=== PATIENT | male | born 1975 | race Caucasian/White ===

== ENCOUNTER 2021-05-06 05:40 | Inpatient (IN) | payer OTHER ==
[~2021-05-06] VITALS: Ht 200.7 cm; Wt 125.0 kg
[~2021-05-06 05:40] MED LIST: ALPR0.25 PO; ASPI325T8 PO; CALC500T31 PO; IXAZ4CAP PO; LENA15CA PO; LEVE500T56 PO; OMEG100021 PO; ONDA4TAB7 PO; VALA10008 PO
[2021-05-06 07:01] LABS: BASO % 1 % (0-3); EOS % 1 % (0-3); HEMATOCRIT 36.5 % (39.0-53.0); HEMOGLOBIN 12.5 g/dL (13.0-17.5); LYMPH % 18 % (24-48); MEAN CORPUSCULAR HEMOGLOBIN 36 pg (25-35); MEAN CORPUSCULAR HGB CONC 34 g/dL (31-37); MEAN CORPUSCULAR VOLUME 105 fL (79-100); MONO # 0.4 x10^3/uL (0.0-1.1); MONO % 7 % (0-9); NEUT # 4.3 x10^3/uL (1.8-7.7); NEUT % 74 % (31-73); PLATELET COUNT 108 x10^3/uL (140-400); RED BLOOD COUNT 3.47 x10^6/uL (4.30-5.70); RED CELL DISTRIBUTION WIDTH 15.4 % (11.5-14.5); WHITE BLOOD COUNT 5.8 x10^3/uL (4.0-11.0)
[2021-05-06 08:11] LABS: BARBITURATES NEG (NEG); BENZODIAZEPINES NEG (NEG); CANNABINOIDS NEG (NEG); COCAINE NEG (NEG); METHADONE NEG (NEG); OPIATES NEG (NEG); PHENCYCLIDINE NEG (NEG)
[2021-05-06 08:15] LABS: BILIRUBIN,URINE NEGATIVE (NEG); CLARITY,URINE CLOUDY; COLOR,URINE YELLOW; NITRITE,URINE NEGATIVE (NEG); PROTEIN,URINE 100 mg/dL (NEG-TRACE); UROBILINOGEN,URINE 0.2 mg/dL (0.2 mg/dL)
[2021-05-06 08:16] LABS: CREATININE 2.5 mg/dL (0.7-1.3); GFR 28.2; POTASSIUM 3.8 mmol/L (3.5-5.1)
[2021-05-06 08:18] LABS: AMPHETAMINE/METHAMPHETAMINE NEG (NEG)
[2021-05-06 08:21] LABS: GRANULAR CASTS,URINE OCCASIONAL /HPF; HYALINE CASTS, URINE FEW /HPF
[2021-05-06 08:22] LABS: BACTERIA,URINE FEW /HPF (0-FEW)
[2021-05-06 08:23] LABS: ALBUMIN 3.4 g/dL (3.4-5.0); ALBUMIN/GLOBULIN RATIO 0.8 (1.0-1.7); MAGNESIUM 2.9 mg/dL (1.8-2.4); PHOSPHORUS 2.7 mg/dL (2.6-4.7); TOTAL BILIRUBIN 0.4 mg/dL (0.2-1.0); TOTAL PROTEIN 7.9 g/dL (6.4-8.2)
[2021-05-06 08:23] LABS: WBC,URINE OCC /HPF (0-4)
[2021-05-06 08:24] LABS: AMORPHOUS SEDIMENT,UR PRESENT /HPF
[2021-05-06] MEDS ORDERED: levETIRAcetam 1,000 MG in IV DEXTROSE 5% 100ML 100 ML IV ONE (08:30)
--- NOTE | 2021-05-06 09:18 | RAD ---
EXAMINATION: CT HEAD/BRAIN WO CLINICAL HISTORY: Seizure, h/o left ventricular mass TECHNIQUE: Serial axial images without IV contrast were obtained from the vertex to the foramen magnu m. CT Dose Reduction Employed: One or more of the following individualized dose reduction techniques wer e utilized for this examination: 1. Automated exposure control 2. Adjustment of the mA and/or kV ac cording to patient size 3. Use of iterative reconstruction technique. COMPARISON: MRI brain 12/09/2020, CT head 12/06/2020 FINDINGS: Acute Change: No evidence of an acute infarct or other acute parenchymal process. Hemorrhage: No evidence of acute intracranial hemorrhage. Mass Lesion/Mass Effect: Prominent asymmetry in the region of the left thalamus and basal ganglia at site of overlying small subependymal nodule which is best visualized on comparison MRI. The degree of asymmetry is similar to slightly more pronounced compared to prior study which may be in part relate d to patient positioning and imaging technique. No new or significant midline shift. Parenchyma: No significant volume loss. Parenchyma otherwise within normal limits for age. Ventricles: Poorly visualized small subependymal nodule in the region of the left caudothalamic groov e, better appreciated on comparison MRI. Asymmetric prominence of the right lateral ventricle, nonspe cific but similar to prior study. Paranasal Sinuses and Skull Base: Increased multifocal sinusitis with changes of chronic left sphenoi d sinusitis. Visualized skull base and soft tissues unremarkable. IMPRESSION: No evidence of acute intracranial abnormality. Similar asymmetry in the region of the left thalamus and basal ganglia with overlying small subependy mal nodule as described. If MRI brain with intravenous contrast has not been obtained since the dev rison MRI, this is again recommended for further evaluation and could be obtained on a nonemergent/ou tpatient basis. Increased multifocal sinusitis as described. Electronically signed by: Jose Raymond DO (05/06/2021 9:16 AM) [id number]
--- NOTE | 2021-05-06 09:46 | ED.ADGEN ---
Past Medical History Past Medical History: Other Additional Past Medical Histor: MULTIPLE MYELOMA Past Surgical History: No Surgical History Smoking Status: Never Smoker Alcohol Use: None General Adult EDM: Chief Complaint: SEIZURE HPI: HPI: Patient is a 45 year old male brought in for seizure by EMS. Patient's states that she thought she heard some commotion last night around 11 but was in a different room. Is unsure what time the seizure happened and was not witnessed. This morning when went to get him up for his work she noticed he was confused. He also had bit the left side of his tongue. No bowel or bladder incontinence. Patient has a history of a seizure earlier this year and was started on Keppra. At that time he was seen and had an MRI without contrast that showed a mass in his left ventricle. He discontinued taking the Keppra several months ago because he did not like the way it made him felt. Patient had a history of epilepsy in childhood. Also has a history significant for multiple myeloma several years in remission after treatment. states that the treatment of multiple myeloma caused some renal injury but has never needed dialysis. Patient states that he felt well in his normal state of health yesterday and has been getting good sleep. No new medications or stressors. Review of Systems: Review of Systems: All other systems within normal limits except for as noted in the HPI Current Medications: Current Medications Medications (Trade) Dose Ordered Sig/Suzie Start Time Stop Time Status Last Admin Dose Admin Levetiracetam 1000 mg/Dextrose 110 ml @ 440 mls/hr 1X ONCE 05/06/21 08:30 05/06/21 08:44 DC 05/06/21 08:41 440 MLS/HR Allergies: Allergies: Allergies Coded Allergies Type Severity Reaction Last Updated Verified No Known Drug Allergies 12/06/20 No Physical Exam: PE: Constitutional: Well developed, well nourished, no acute distress, non-toxic appearance. [] HENT: Normocephalic, atraumatic, bilateral external ears normal, nose normal. Small laceration to left tongue, hemostatic [] Eyes: PERRLA, conjunctiva normal, no discharge. [] Neck: No rigidity, supple, no stridor. [] Cardiovascular: Regular rate and rhythm, brisk cap refill [] Lungs & Thorax: Non labored symmetric respirations, no tachypnea or respiratory distress [] Abdomen: Soft, nondistended. Skin: Warm, dry, no erythema, no rash. [] Back: Unremarkable Extremities: No deformities, range of motion grossly intact, no lower extremity edema [] Neurologic: Alert and oriented X 3, no focal deficits noted. [] Psychologic: Affect normal, judgement normal, mood normal. [] Current Patient Data: Labs: Laboratory Tests Test 05/06/21 06:51 05/06/21 07:30 05/06/21 07:40 White Blood Count 5.8 x10^3/uL (4.0-11.0) Red Blood Count 3.47 x10^6/uL (4.30-5.70) L Hemoglobin 12.5 g/dL (13.0-17.5) L Hematocrit 36.5 % (39.0-53.0) L Mean Corpuscular Volume 105 fL (79-100) H Mean Corpuscular Hemoglobin 36 pg (25-35) H Mean Corpuscular Hemoglobin Concent 34 g/dL (31-37) Red Cell Distribution Width 15.4 % (11.5-14.5) H Platelet Count 108 x10^3/uL (140-400) L Neutrophils (%) (Auto) 74 % (31-73) H Lymphocytes (%) (Auto) 18 % (24-48) L Monocytes (%) (Auto) 7 % (0-9) Eosinophils (%) (Auto) 1 % (0-3) Basophils (%) (Auto) 1 % (0-3) Neutrophils # (Auto) 4.3 x10^3/uL (1.8-7.7) Lymphocytes # (Auto) 1.0 x10^3/uL (1.0-4.8) Monocytes # (Auto) 0.4 x10^3/uL (0.0-1.1) Eosinophils # (Auto) 0.0 x10^3/uL (0.0-0.7) Basophils # (Auto) 0.0 x10^3/uL (0.0-0.2) Segmented Neutrophils % 58 % (35-66) Band Neutrophils % 14 % (0-9) H Lymphocytes % 15 % (24-48) L Atypical Lymphocytes % (Manual) 3 % (0-0) H Monocytes % 7 % (0-10) Eosinophils % 3 % (0-5) Platelet Estimate Decreased (ADEQUATE) Lactic Acid Level 1.0 mmol/L (0.4-2.0) Sodium Level 135 mmol/L (136-145) L Potassium Level 3.8 mmol/L (3.5-5.1) Chloride Level 101 mmol/L (98-107) Carbon Dioxide Level 25 mmol/L (21-32) Anion Gap 9 (6-14) Blood Urea Nitrogen 27 mg/dL (8-26) H Creatinine 2.5 mg/dL (0.7-1.3) H Estimated GFR (Cockcroft-Gault) 28.2 BUN/Creatinine Ratio 11 (6-20) Glucose Level 92 mg/dL (70-99) Calcium Level 8.0 mg/dL (8.5-10.1) L Phosphorus Level 2.7 mg/dL (2.6-4.7) Magnesium Level 2.9 mg/dL (1.8-2.4) H Total Bilirubin 0.4 mg/dL (0.2-1.0) Aspartate Amino Transferase (AST) 10 U/L (15-37) L Alanine Aminotransferase (ALT) 31 U/L (16-63) Alkaline Phosphatase 63 U/L (46-116) Creatine Kinase 378 U/L (39-308) H Myoglobin 2429 ng/mL (16-96) H Troponin I Quantitative < 0.017 ng/mL (0.000-0.055) Total Protein 7.9 g/dL (6.4-8.2) Albumin 3.4 g/dL (3.4-5.0) Albumin/Globulin Ratio 0.8 (1.0-1.7) L Ethyl Alcohol Level < 10 mg/dL (0-10) Urine Collection Type Unknown Urine Color Yellow Urine Clarity Cloudy Urine pH 5.0 (<5.0-8.0) Urine Specific [place] 1.020 (1.000-1.030) Urine Protein 100 mg/dL (NEG-TRACE) Urine Glucose (UA) Negative mg/dL (NEG) Urine Ketones (Stick) Negative mg/dL (NEG) Urine Blood Trace (NEG) Urine Nitrite Negative (NEG) Urine Bilirubin Negative (NEG) Urine Urobilinogen Dipstick 0.2 mg/dL (0.2 mg/dL) Urine Leukocyte Esterase Negative (NEG) Urine RBC 1-2 /HPF (0-2) Urine WBC Occ /HPF (0-4) Urine Squamous Epithelial Cells Occ /LPF Urine Amorphous Sediment Present /HPF Urine Bacteria Few /HPF (0-FEW) Urine Hyaline Casts Few /HPF Urine Granular Casts Occasional /HPF Urine Mucus Mod /LPF Urine Opiates Screen Neg (NEG) Urine Methadone Screen Neg (NEG) Urine Barbiturates Neg (NEG) Urine Phencyclidine Screen Neg (NEG) Urine Amphetamine/Methamphetamine Neg (NEG) Urine Benzodiazepines Screen Neg (NEG) Urine Cocaine Screen Neg (NEG) Urine Cannabinoids Screen Neg (NEG) Urine Ethyl Alcohol Neg (NEG) Laboratory Tests 05/06/21 06:51 Laboratory Tests 05/06/21 07:30 Vital Signs: Vital Signs Date Time Temp Pulse Resp B/P (MAP) Pulse Ox O2 Delivery O2 Flow Rate FiO2 05/06/21 07:20 97.8 68 16 143/87 (105) 95 Room Air 97.8 EKG: EKG: Sinus rhythm, heart rate 60s be admitted, diffuse Q waves, no ST elevation or depression, normal axis. [] Heart Score: C/O Chest Pain: No Risk Factors: Risk Factors: DM, Current or recent (<one month) smoker, HTN, HLP, family history of CAD, obesity. Risk Scores: Score 0 - 3: 2.5% MACE over next 6 weeks - Discharge Home Score 4 - 6: 20.3% MACE over next 6 weeks - Admit for Clinical Observation Score 7 - 10: 72.7% MACE over next 6 weeks - Early Invasive Strategies Radiology/Procedures: Radiology/Procedures: [facility] [address] [place], [place] [id number] IMAGING REPORT Signed PATIENT: GIANNA GARCIA ACCOUNT: [id number] : 1975 LOCATION: ER AGE: 45 SEX: M EXAM STATUS: REG ER ORD. PHYSICIAN: MILES CAMACHO MD REASON: seizure, h/o left ventricular mass PROCEDURE: CT HEAD WO CONTRAST EXAMINATION: CT HEAD/BRAIN WO CLINICAL HISTORY: Seizure, h/o left ventricular mass TECHNIQUE: Serial axial images without IV contrast were obtained from the vertex to the foramen magnum. CT Dose Reduction Employed: One or more of the following individualized dose reduction techniques were utilized for this examination: 1. Automated exposure control 2. Adjustment of the mA and/or kV according to patient size 3. Use of iterative reconstruction technique. COMPARISON: MRI brain 12/09/2020, CT head 12/06/2020 FINDINGS: Acute Change: No evidence of an acute infarct or other acute parenchymal process. Hemorrhage: No evidence of acute intracranial hemorrhage. Mass Lesion/Mass Effect: Prominent asymmetry in the region of the left thalamus and basal ganglia at site of overlying small subependymal nodule which is best visualized on comparison MRI. The degree of asymmetry is similar to slightly more pronounced compared to prior study which may be in part related to patient positioning and imaging technique. No new or significant midline shift. Parenchyma: No significant volume loss. Parenchyma otherwise within normal limits for age. Ventricles: Poorly visualized small subependymal nodule in the region of the left caudothalamic groove, better appreciated on comparison MRI. Asymmetric prominence of the right lateral ventricle, nonspecific but similar to prior study. Paranasal Sinuses and Skull Base: Increased multifocal sinusitis with changes of chronic left sphenoid sinusitis. Visualized skull base and soft tissues unremarkable. IMPRESSION: No evidence of acute intracranial abnormality. Similar asymmetry in the region of the left thalamus and basal ganglia with overlying small subependymal nodule as described. If MRI brain with intravenous contrast has not been obtained since the comparison MRI, this is again recommen ded for further evaluation and could be obtained on a nonemergent/outpatient basis. Increased multifocal sinusitis as described. Electronically signed by: Jose Monroy DO (05/06/2021 9:16 AM) [id number] DICTATED and SIGNED BY: JOSE MONROY DO DATE: 05/06/21 [id number] [] Course & Med Decision Making: Course & Med Decision Making Pertinent Labs and Imaging studies reviewed. (See chart for details) Patient loaded with Keppra and admitted for worsening renal failure and seizures. [] Dragon Disclaimer: Dragon Disclaimer: This electronic medical record was generated, in whole or in part, using a voice recognition dictation system. Departure Departure Impression: Primary Impression: Renal insufficiency Additional Impression: Seizure Disposition: ADMITTED INPATIENT Admitting Physician: HIMS Condition: STABLE Referrals: KATHIE BELL MD (PCP) Problem Qualifiers MILES CAMACHO MD May 06, 2021 09:46
[2021-05-06] MEDS ORDERED: ACETAMINOPHEN 325 MG TABLET. PO PRN (10:15)
[2021-05-06] MEDS: IV NORMAL SALINE 1000ML BAG 1,000 ML IV SCH ×2 (10:50→20:45)
[2021-05-06] MEDS: MORPHINE SULFATE 4 MG/ML INJ. IVP PRN ×2 (10:56→20:50)
[2021-05-06] MEDS: ONDANSETRON PF 4 MG/2 ML VIAL. IVP PRN ×2 (10:59→20:50)
[2021-05-06 13:33] LABS: % ATYL 3 % (0-0); % BANDS 14 % (0-9); % EOS 3 % (0-5); % LYMPHS 15 % (24-48); % MONOS 7 % (0-10); % SEGS 58 % (35-66); PLT ESTIMATE DECREASED (ADEQUATE)
[2021-05-06 14:46] VITALS: BP 121/70
[2021-05-06] MEDS ORDERED: LACOSAMIDE 50 MG TABLET PO ONE (16:00)
--- NOTE | 2021-05-06 18:39 | PDOC1 ---
History and Physical Date of Admission Date of Admission DATE: 05/06/21 TIME: 18:33 Source Source: Caregiver, Chart review, Patient History of Present Illness History of Present Illness Mr. Vasquez is a 45 year old male admit for seizure, arrived to ER by EMS. He feels like he had a seizure, is sore, but was not witnessed, his heard commotion, and found him with a bite to his own tongue and markedly lethargic he was hard asleep when I came to see him, and still a little confused. No bowel or bladder incontinence. prior known seizure disorder, he cannot remember the name of the Neurologist he saw recently in the [facility] system,. some known brain mass, has been treated for mult myeloma, in remission, he cannot remember now if he has had a allo transplant. noted that tghe treatment of multiple myeloma caused some renal injury Past Medical History Cardiovascular: No pertinent hx CENTRAL NERVOUS SYSTEM: Seizure Heme/Onc: Cancer, Other (myeloma) Past Surgical History Past Surgical History: No pertinent history Family History Family History: Heart Disease Social History Smoke: No ALCOHOL: none Drugs: None Current Problem List Problem List Problems Medical Problems: (1) Renal insufficiency Status: Acute Current Medications Current Medications Current Medications Levetiracetam 1000 mg/Dextrose 110 ml @ 440 mls/hr 1X ONCE IV Last administered on 05/06/21at 08:41; Start 05/06/21 at 08:30; Stop 05/06/21 at 08:44; Status DC Ondansetron HCl (Zofran) 4 mg PRN Q8HRS PRN IVP NAUSEA/VOMITING Last administered on 05/06/21at 10:59; Start 05/06/21 at 10:15; Stop 05/07/21 at 10:14 Morphine Sulfate (Morphine Sulfate) 4 mg PRN Q2HR PRN IVP PAIN Last administere d on 05/06/21at 10:56; Start 05/06/21 at 10:15; Stop 05/07/21 at 10:14 Sodium Chloride 1,000 ml @ 125 mls/hr Q8H IV Last administered on 05/06/21at 10:50; Start 05/06/21 at 10:15; Stop 05/07/21 at 10:14 Acetaminophen (Tylenol) 650 mg PRN Q4HRS PRN PO FEVER > 100.3'F Last administered on 05/06/21at 10:51; Start 05/06/21 at 10:15; Stop 05/07/21 at 10:14 Lacosamide (Vimpat) 50 mg BID PO ; Start 05/06/21 at 21:00 Lacosamide (Vimpat) 50 mg ONCE ONCE PO Last administered on 05/06/21at 16:57; Start 05/06/21 at 16:00; Stop 05/06/21 at 16:01; Status DC Active Scripts Active Keppra (Levetiracetam) 500 Mg Tablet 1 Tab PO BID 30 Days Reported Ninlaro (Ixazomib Citrate) 4 Mg Capsule 4 Mg PO QFR START 12/16 Fish Oil 1,000 mg Softgel ([place]-3/Dha/Epa/Fish Oil) 1,000 Mg Capsule 1,000 Mg PO DAILY Valacyclovir (Valacyclovir Hcl) 1,000 Mg Tablet 1,000 Mg PO DAILY Zofran (Ondansetron Hcl) 4 Mg Tablet 8 Mg PO BID PRN Calcium Carbonate 500 Mg Tablet 1,250 Mg PO DAILY Aspirin 325 Mg Tablet 325 Mg PO DAILY Xanax (Alprazolam) 0.25 Mg Tablet 0.25 Mg PO PRN BID PRN Revlimid (Lenalidomide) 15 Mg Capsule 15 Mg PO DAILY Allergies Allergies: Coded Allergies: No Known Drug Allergies (Unverified , 12/06/20) ROS General: YES: Fatigue, Malaise PSYCHOLOGICAL ROS: No: Anxiety, Behavioral Disorder, Concentration difficultie, Decreased libido, Depression, Disorientation, Hallucinations, Hostility, Irritablity, Memory difficulties, Mood Swings, Obsessive thoughts, Physical abuse, Sexual abuse, Sleep disturbances, Suicidal ideation, Other Eyes: No Blurry vision, No Decreased vision, No Double vision, No Dry eyes, No Excessive tearing, No Eye Pain, No Itchy Eyes, No Loss of vision, No Photophobia, No Scotomata, No Uses contacts, No Uses glasses, No Other HEENT: YES: Heacaches; No: Visual Changes, Hearing change, Nasal congestion, Nasal discharge, Oral lesions, Sinus pain, Sore Throat, Epistaxis, Sneezing, Snoring, Tinnitus, Vertigo, Vocal changes, Other Respiratory: No: Cough, Hemoptysis, Orthopnea, Pleuritic Pain, Shortness of breath, SOB with excertion, Sputum Changes, Stridor, Tachypnea, Wheezing, Other Cardiovascular: No Palpitations, No Orthopnea, No Paroxysmal Noc. Dyspnea, No Edema, No Lt Headedness, No Other Gastrointestinal: Yes Nausea; No Vomiting, No Abdominal Pain, No Diarrhea, No Constipation, No Melena, No Hematochezia, No Other Genitourinary: No Dysuria, No Frequency, No Incontinence, No Hematuria, No Retention, No Discharge, No Urgency, No Pain, No Flank Pain, No Other, No , No , No , No , No , No , No Musculoskeletal: Yes Muscle Pain (neck, sore, ), Yes Muscular Weakness; No Gait Disturbance, No Joint Pain, No Joint Stiffness, No Joint Swelling, No Pain In:, No Swelling In:, No Other Neurological: No Behavorial Changes, No Bowel/Bladder ControlChng, No Confusion, No Dizziness, No Gait Disturbance, No Headaches, No Impaired Coord/balance, No Memory Loss, No Numbness/Tingling, No Seizures, No Speech Problems, No Tremors, No Visual Changes, No Weakness, No Other Skin: No Dry Skin, No Eczema, No Hair Changes, No Lumps, No Mole Changes, No Mottling, No Nail Changes, No Pruritus, No Rash, No Skin Lesion Changes, No Other, No Acne Physical Exam General: Alert, Cooperative, mild distress HEENT: PERRLA, EOMI Lungs: Clear to auscultation, Normal air movement Heart: S1S2, no thrills Abdomen: Normal bowel sounds, Soft, No tenderness Rectal Exam: not examined Extremities: No clubbing, No edema, Normal pulses Skin: No breakdown Neuro: Normal speech, Normal tone, Sensation intact Psych/Mental Status: Mood NL Vitals Vitals Vital Signs Date Time Temp Pulse Resp B/P (MAP) Pulse Ox O2 Delivery O2 Flow Rate FiO2 05/06/21 15:52 96 Room Air 05/06/21 14:46 97.9 61 18 121/70 (87) 97.9 Labs Labs Laboratory Tests Test 05/06/21 06:51 05/06/21 07:30 05/06/21 07:40 05/06/21 12:43 White Blood Count 5.8 x10^3/uL (4.0-11.0) Red Blood Count 3.47 x10^6/uL (4.30-5.70) Hemoglobin 12.5 g/dL (13.0-17.5) Hematocrit 36.5 % (39.0-53.0) Mean Corpuscular Volume 105 fL (79-100) Mean Corpuscular Hemoglobin 36 pg (25-35) Mean Corpuscular Hemoglobin Concent 34 g/dL (31-37) Red Cell Distribution Width 15.4 % (11.5-14.5) Platelet Count 108 x10^3/uL (140-400) Neutrophils (%) (Auto) 74 % (31-73) Lymphocytes (%) (Auto) 18 % (24-48) Monocytes (%) (Auto) 7 % (0-9) Eosinophils (%) (Auto) 1 % (0-3) Basophils (%) (Auto) 1 % (0-3) Neutrophils # (Auto) 4.3 x10^3/uL (1.8-7.7) Lymphocytes # (Auto) 1.0 x10^3/uL (1.0-4.8) Monocytes # (Auto) 0.4 x10^3/uL (0.0-1.1) Eosinophils # (Auto) 0.0 x10^3/uL (0.0-0.7) Basophils # (Auto) 0.0 x10^3/uL (0.0-0.2) Segmented Neutrophils % 58 % (35-66) Band Neutrophils % 14 % (0-9) Lymphocytes % 15 % (24-48) Atypical Lymphocytes % (Manual) 3 % (0-0) Monocytes % 7 % (0-10) Eosinophils % 3 % (0-5) Platelet Estimate Decreased (ADEQUATE) Lactic Acid Level 1.0 mmol/L (0.4-2.0) Sodium Level 135 mmol/L (136-145) Potassium Level 3.8 mmol/L (3.5-5.1) Chloride Level 101 mmol/L (98-107) Carbon Dioxide Level 25 mmol/L (21-32) Anion Gap 9 (6-14) Blood Urea Nitrogen 27 mg/dL (8-26) Creatinine 2.5 mg/dL (0.7-1.3) Estimated GFR (Cockcroft-Gault) 28.2 BUN/Creatinine Ratio 11 (6-20) Glucose Level 92 mg/dL (70-99) Calcium Level 8.0 mg/dL (8.5-10.1) Phosphorus Level 2.7 mg/dL (2.6-4.7) Magnesium Level 2.9 mg/dL (1.8-2.4) Total Bilirubin 0.4 mg/dL (0.2-1.0) Aspartate Amino Transf (AST/SGOT) 10 U/L (15-37) Alanine Aminotransferase (ALT/SGPT) 31 U/L (16-63) Alkaline Phosphatase 63 U/L (46-116) Creatine Kinase 378 U/L (39-308) Myoglobin 2429 ng/mL (16-96) Troponin I Quantitative < 0.017 ng/mL (0.000-0.055) 0.020 ng/mL (0.000-0.055) Total Protein 7.9 g/dL (6.4-8.2) Albumin 3.4 g/dL (3.4-5.0) Albumin/Globulin Ratio 0.8 (1.0-1.7) Ethyl Alcohol Level < 10 mg/dL (0-10) Urine Collection Type Unknown Urine Color Yellow Urine Clarity Cloudy Urine pH 5.0 (<5.0-8.0) Urine Specific [place] 1.020 (1.000-1.030) Urine Protein 100 mg/dL (NEG-TRACE) Urine Glucose (UA) Negative mg/dL (NEG) Urine Ketones (Stick) Negative mg/dL (NEG) Urine Blood Trace (NEG) Urine Nitrite Negative (NEG) Urine Bilirubin Negative (NEG) Urine Urobilinogen Dipstick 0.2 mg/dL (0.2 mg/dL) Urine Leukocyte Esterase Negative (NEG) Urine RBC 1-2 /HPF (0-2) Urine WBC Occ /HPF (0-4) Urine Squamous Epithelial Cells Occ /LPF Urine Amorphous Sediment Present /HPF Urine Bacteria Few /HPF (0-FEW) Urine Hyaline Casts Few /HPF Urine Granular Casts Occasional /HPF Urine Mucus Mod /LPF Urine Opiates Screen Neg (NEG) Urine Methadone Screen Neg (NEG) Urine Barbiturates Neg (NEG) Urine Phencyclidine Screen Neg (NEG) Urine Amphetamine/Methamphetamine Neg (NEG) Urine Benzodiazepines Screen Neg (NEG) Urine Cocaine Screen Neg (NEG) Urine Cannabinoids Screen Neg (NEG) Urine Ethyl Alcohol Neg (NEG) Test 9/4/21 14:58 SARS-CoV-2 Antigen (Rapid) Negative (NEGATIVE) Laboratory Tests Test 05/06/21 06:51 05/06/21 07:30 05/06/21 07:40 05/06/21 12:43 White Blood Count 5.8 x10^3/uL (4.0-11.0) Red Blood Count 3.47 x10^6/uL (4.30-5.70) Hemoglobin 12.5 g/dL (13.0-17.5) Hematocrit 36.5 % (39.0-53.0) Mean Corpuscular Volume 105 fL (79-100) Mean Corpuscular Hemoglobin 36 pg (25-35) Mean Corpuscular Hemoglobin Concent 34 g/dL (31-37) Red Cell Distribution Width 15.4 % (11.5-14.5) Platelet Count 108 x10^3/uL (140-400) Neutrophils (%) (Auto) 74 % (31-73) Lymphocytes (%) (Auto) 18 % (24-48) Monocytes (%) (Auto) 7 % (0-9) Eosinophils (%) (Auto) 1 % (0-3) Basophils (%) (Auto) 1 % (0-3) Neutrophils # (Auto) 4.3 x10^3/uL (1.8-7.7) Lymphocytes # (Auto) 1.0 x10^3/uL (1.0-4.8) Monocytes # (Auto) 0.4 x10^3/uL (0.0-1.1) Eosinophils # (Auto) 0.0 x10^3/uL (0.0-0.7) Basophils # (Auto) 0.0 x10^3/uL (0.0-0.2) Segmented Neutrophils % 58 % (35-66) Band Neutrophils % 14 % (0-9) Lymphocytes % 15 % (24-48) Atypical Lymphocytes % (Manual) 3 % (0-0) Monocytes % 7 % (0-10) Eosinophils % 3 % (0-5) Platelet Estimate Decreased (ADEQUATE) Lactic Acid Level 1.0 mmol/L (0.4-2.0) Sodium Level 135 mmol/L (136-145) Potassium Level 3.8 mmol/L (3.5-5.1) Chloride Level 101 mmol/L (98-107) Carbon Dioxide Level 25 mmol/L (21-32) Anion Gap 9 (6-14) Blood Urea Nitrogen 27 mg/dL (8-26) Creatinine 2.5 mg/dL (0.7-1.3) Estimated GFR (Cockcroft-Gault) 28.2 BUN/Creatinine Ratio 11 (6-20) Glucose Level 92 mg/dL (70-99) Calcium Level 8.0 mg/dL (8.5-10.1) Phosphorus Level 2.7 mg/dL (2.6-4.7) Magnesium Level 2.9 mg/dL (1.8-2.4) Total Bilirubin 0.4 mg/dL (0.2-1.0) Aspartate Amino Transf (AST/SGOT) 10 U/L (15-37) Alanine Aminotransferase (ALT/SGPT) 31 U/L (16-63) Alkaline Phosphatase 63 U/L (46-116) Creatine Kinase 378 U/L (39-308) Myoglobin 2429 ng/mL (16-96) Troponin I Quantitative < 0.017 ng/mL (0.000-0.055) 0.020 ng/mL (0.000-0.055) Total Protein 7.9 g/dL (6.4-8.2) Albumin 3.4 g/dL (3.4-5.0) Albumin/Globulin Ratio 0.8 (1.0-1.7) Ethyl Alcohol Level < 10 mg/dL (0-10) Urine Collection Type Unknown Urine Color Yellow Urine Clarity Cloudy Urine pH 5.0 (<5.0-8.0) Urine Specific [place] 1.020 (1.000-1.030) Urine Protein 100 mg/dL (NEG-TRACE) Urine Glucose (UA) Negative mg/dL (NEG) Urine Ketones (Stick) Negative mg/dL (NEG) Urine Blood Trace (NEG) Urine Nitrite Negative (NEG) Urine Bilirubin Negative (NEG) Urine Urobilinogen Dipstick 0.2 mg/dL (0.2 mg/dL) Urine Leukocyte Esterase Negative (NEG) Urine RBC 1-2 /HPF (0-2) Urine WBC Occ /HPF (0-4) Urine Squamous Epithelial Cells Occ /LPF Urine Amorphous Sediment Present /HPF Urine Bacteria Few /HPF (0-FEW) Urine Hyaline Casts Few /HPF Urine Granular Casts Occasional /HPF Urine Mucus Mod /LPF Urine Opiates Screen Neg (NEG) Urine Methadone Screen Neg (NEG) Urine Barbiturates Neg (NEG) Urine Phencyclidine Screen Neg (NEG) Urine Amphetamine/Methamphetamine Neg (NEG) Urine Benzodiazepines Screen Neg (NEG) Urine Cocaine Screen Neg (NEG) Urine Cannabinoids Screen Neg (NEG) Urine Ethyl Alcohol Neg (NEG) Test 05/06/21 14:58 SARS-CoV-2 Antigen (Rapid) Negative (NEGATIVE) VTE Prophylaxis Ordered VTE Prophylaxis Devices: No VTE Pharmacological Prophylaxi: Yes Assessment/Plan Assessment/Plan seizure, acute with known seizure disorder, he has seen a Neurologist in the [facility] system 2 weeks ago post-ictal and confused acute renal failure, myoglobin up, low grade rhabdo, will hydrate aggresively probable CKD 3 multiple myeloma in remission brain mass, NOS Justifications for Admission Other Justification AJ BURKETT MD May 06, 2021 18:39
[2021-05-06 19:00] VITALS: BP 121/69
[2021-05-06] MEDS: LACOSAMIDE 50 MG TABLET PO SCH (20:50)
--- NOTE | 2021-05-06 21:48 | CONS ---
DATE OF CONSULTATION: 05/06/2021 REFERRING PHYSICIAN: Shirley Georges MD REASON FOR CONSULTATION: Seizure. HISTORY OF PRESENT ILLNESS: The patient is a 45-year-old man who had an episode last night. His states that she heard some commotion around 11:00 p.m., but he was in a different room. This morning when she went to get him up for work, he noticed that he was confused. He bit the left side of his tongue. He was not incontinent. He was sore all over, especially in the left shoulder. This is how he presented when he had a seizure in 12/2020. At that time, investigation was not revealing. He was placed on Keppra. He was experiencing adverse effects, so he discontinued Keppra on his own several months ago. He had a history of seizures in childhood as well. He does have multiple myeloma, but follows with his oncologist regularly and believes he is in remission. He has not had any recent trauma to his head or neck. He has had some allergy symptoms, which has responded to antihistamines. He has been vaccinated for COVID. He has not been complaining of fever. He did develop some mild cough today. He feels his cognition is back to normal, but he feels tired and sore. PAST MEDICAL HISTORY: 1. Multiple myeloma. 2. Seizures. ALLERGIES: No known allergies to drugs. MEDICATIONS PRIOR TO ADMISSION: Alprazolam 0.25 mg twice per day as needed, aspirin 325 mg, calcium carbonate 1250 mg daily, Ninlaro 4 mg every Saturday, Revlimid 15 mg daily, omega 3 fatty acids, Zofran 8 mg as needed and valacyclovir 1000 mg daily. FAMILY HISTORY: Noncontributory. SOCIAL HISTORY: He is . He does not smoke tobacco or drink alcohol. 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 REVIEW OF SYSTEMS: He does not complain of any headache. There has been no change of vision or hearing. He has been able to chew and swallow. His tongue is sore, has bit his tongue. He has had a slight cough today. He has not had shortness of breath, chest or abdominal pain. He has left shoulder pain following this spell. He has not had fever or rash. He does not have gastrointestinal or genitourinary complaint. He does not complain of numbness. He normally does not have any difficulty with balance. He does have some underlying anxiety. He does get some swelling in his feet. PHYSICAL EXAMINATION: VITAL SIGNS: The blood pressure was 121/70, pulse 61, respirations 18, temperature 97.9 degrees Fahrenheit. Oximetry was 96% on room air. His weight was 124 kilograms, height 79 inches with a calculated body mass index of 30.8. GENERAL: He was alert, awake and cooperative. NEUROLOGIC: Speech was fluent and clear. He had a good fund of recent and remote knowledge. Attention and concentration was intact. He appeared well-groomed and well nourished. He was fully oriented. Examination of the cranial nerves revealed visual almeida were full to confrontation. Extraocular movements were intact. The eyes were conjugate. Pursuit movements were smooth and saccadic eye movements were without dysmetria. Pupils were 3 mm and reacted. Facial sensation was intact. The muscles of mastication and facial expression were powerful symmetrically. Hearing was intact to finger rub. The palate arched symmetrically and the tongue was midline. The tongue appeared swollen with some lacerations, especially on the left side. Sternocleidomastoid and trapezius were powerful. Muscle bulk and tone was normal. There was no spasticity or rigidity. Power was full and symmetric in the upper and lower extremities with some limitation due to left shoulder pain. Reflexes were generally diminished throughout. Toes were not upgoing. Coordination testing with [id number], heel to lemon, fine motor and rapid alternating movements were fairly well performed. Sensory exam was intact to light touch, proprioception, graphesthesia, cold thermal and vibration. There was no extinction to double simultaneous stimulation. He was able to stand and bear weight. Peripheral pulses were symmetric in the hands and feet. Carotid pulses palpated normally. There was edema of his feet. There was no cyanosis. LABORATORY RESULTS: CBC was performed on 05/06/2021 revealing a normal white blood cell count. The hemoglobin was diminished to 12.5, hematocrit to 36.5 and platelet count to 108. Chemistries were performed on 05/06/2021. This revealed a sodium low at 135. Potassium, chloride and CO2 were normal. BUN was elevated to 27 and creatinine to 2.5. The GFR calculated at 28.2. Glucose was normal. Lactic acid was not elevated. Calcium was low at 8. Phosphorus was normal, but magnesium was elevated to 2.9. Liver enzymes were not elevated. CPK was elevated to 378 with myoglobin elevated at 2429. Troponin was not elevated. Total protein and albumin were normal. Urine drug screen was negative. Alcohol was not detected. Urinalysis was performed on 05/06/2021, revealing 100 mg/dL of protein. There was trace blood, 0.2 bilinogen, 1-2 red blood cells, occasional white blood cells and squamous epithelial cells. Amorphous sediment was present. There were a few bacteria and hyaline casts. DIAGNOSTIC RESULTS: A CT scan of the brain was performed without contrast on 05/06/2021. This revealed no acute intracranial abnormality. This was compared to MRI of 12/09/[address] head of 12/06/2020. There was a similar asymmetry in the region of the left thalamus and basal ganglia with overlying small subependymal nodule as previously described. There is increased multifocal sinusitis. IMPRESSION: The patient is a 45-year-old man who had an unwitnessed seizure at home. This occurred in December 2020 and also in high school. He was prescribed Keppra, but it provoked adverse effects. He discontinued the medication on his own without contacting a provider. The neurologic exam is nonfocal except for pain of the left shoulder, which has occurred after the seizure. RECOMMENDATIONS: We will not continue with Keppra as it provoked adverse effects. I will try Vimpat initiating this at 50 mg twice per day. This can be increased after a week to 100 mg twice per day. I am hopeful he will be able to tolerate this with few adverse effects. I would like to send a report to Lisa Purdy, who is his primary care physician. I appreciate being involved in his care. CHELSEA DR: Ghislaine TID: [id number] CC: EMILE SANTOS MD, Lisa Purdy MD
[2021-05-06 23:00] VITALS: BP 116/79
[2021-05-07 03:05] VITALS: BP 123/60
[2021-05-07] MEDS: IV NORMAL SALINE 1000ML BAG 1,000 ML IV SCH ×2 (03:23→19:57)
[2021-05-07 07:00] VITALS: BP 116/54
[2021-05-07] MEDS: LACOSAMIDE 50 MG TABLET PO SCH ×2 (08:25→19:58)
[2021-05-07 09:01] LABS: BASO % 0 % (0-3); EOS # 0.2 x10^3/uL (0.0-0.7); EOS % 5 % (0-3); HEMATOCRIT 33.2 % (39.0-53.0); HEMOGLOBIN 11.1 g/dL (13.0-17.5); LYMPH # 0.7 x10^3/uL (1.0-4.8); LYMPH % 22 % (24-48); MEAN CORPUSCULAR HEMOGLOBIN 36 pg (25-35); MEAN CORPUSCULAR HGB CONC 34 g/dL (31-37); MEAN CORPUSCULAR VOLUME 107 fL (79-100); MONO # 0.3 x10^3/uL (0.0-1.1); MONO % 9 % (0-9); NEUT # 1.9 x10^3/uL (1.8-7.7); NEUT % 64 % (31-73); PLATELET COUNT 76 x10^3/uL (140-400); RED BLOOD COUNT 3.12 x10^6/uL (4.30-5.70)
[2021-05-07 09:29] LABS: ALBUMIN 2.7 g/dL (3.4-5.0); ALBUMIN/GLOBULIN RATIO 0.6 (1.0-1.7); CALCIUM 6.9 mg/dL (8.5-10.1); CREATININE 2.9 mg/dL (0.7-1.3); GFR 23.8; POTASSIUM 3.8 mmol/L (3.5-5.1); TOTAL BILIRUBIN 0.4 mg/dL (0.2-1.0); TOTAL PROTEIN 7.1 g/dL (6.4-8.2)
--- NOTE | 2021-05-07 10:38 | PDOC ---
PROGRESS NOTES Date of Service: DATE: 05/07/21 TIME: 10:37 Chief Complaint Chief Complaint VTE Prophylaxis Ordered VTE Prophylaxis Devices: No VTE Pharmacological Prophylaxi: Yes Assessment/Plan Assessment/Plan seizure, acute with known seizure disorder, [facility] asymmetry in the region of the left thalamus and basal ganglia with overlying small subependymal nodule as described. 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 Differential diagnosis includes heterotopic odonnell matter, subependymal giant cell astrocytoma, or subepe ndymoma post-ictal and confused acute renal failure, myoglobin up, low grade rhabdo, will hydrate aggresively probable CKD 3 multiple myeloma in remission brain mass, NOS not continue with Keppra provoked adverse effects. Vimpat 50 mg twice per day. Justifications for Admission Justifications for Admission Other Justification History of Present Illness History of Present Illness History of Present Illness History of Present Illness Mr. Vasquez is a 45 year old male admit for seizure, arrived to ER by EMS. He feels like he had a seizure, is sore, but was not witnessed, his heard commotion, and found him with a bite to his own tongue and markedly lethargic he was hard asleep when I came to see him, and still a little confused. No bowel or bladder incontinence. prior known seizure disorder, he cannot remember the name of the Neurologist he saw recently in the [facility] system,. some known brain mass, has been treated for mult myeloma, in remission, he cannot remember now if he has had a allo transplant. noted that tghe treatment of multiple myeloma caused some renal injury Past Medical History Cardiovascular: No pertinent hx CENTRAL NERVOUS SYSTEM: Seizure Heme/Onc: Cancer, Other (myeloma) Past Surgical History Past Surgical History: No pertinent history Family History Family History: Heart Disease Social History Smoke: No ALCOHOL: none Drugs: None Current Problem List Problem List Problems Medical Problems: (1) Renal insufficiency Status: Acute Current Medications Current Medications Current Medications Levetiracetam 1000 mg/Dextrose 110 ml @ 440 mls/hr 1X ONCE IV Last administered on 05/06/21at 08:41; Start 05/06/21 at 08:30; Stop 05/06/21 at 08:44; Status DC Ondansetron HCl (Zofran) 4 mg PRN Q8HRS PRN IVP NAUSEA/VOMITING Last administered on 05/06/21at 10:59; Start 05/06/21 at 10:15; Stop 05/07/21 at 10:14 Morphine Sulfate (Morphine Sulfate) 4 mg PRN Q2HR PRN IVP PAIN Last administered on 05/06/21at 10:56; Start 05/06/21 at 10:15; Stop 05/07/21 at 10:14 Sodium Chloride 1,000 ml @ 125 mls/hr Q8H IV Last administered on 05/06/21at 10:50; Start 05/06/21 at 10:15; Stop 05/07/21 at 10:14 Acetaminophen (Tylenol) 650 mg PRN Q4HRS PRN PO FEVER > 100.3'F Last administered on 05/06/21at 10:51; Start 05/06/21 at 10:15; Stop 05/07/21 at 10:14 Lacosamide (Vimpat) 50 mg BID PO ; Start 05/06/21 at 21:00 Lacosamide (Vimpat) 50 mg ONCE ONCE PO Last administered on 05/06/21at 16:57; Start 05/06/21 at 16:00; Stop 05/06/21 at 16:01; Status DC Active Scripts Active Keppra (Levetiracetam) 500 Mg Tablet 1 Tab PO BID 30 Days Reported Ninlaro (Ixazomib Citrate) 4 Mg Capsule 4 Mg PO QFR START 12/16 Fish Oil 1,000 mg Softgel ([place]-3/Dha/Epa/Fish Oil) 1,000 Mg Capsule 1,000 Mg PO DAILY Valacyclovir (Valacyclovir Hcl) 1,000 Mg Tablet 1,000 Mg PO DAILY Zofran (Ondansetron Hcl) 4 Mg Tablet 8 Mg PO BID PRN Calcium Carbonate 500 Mg Tablet 1,250 Mg PO DAILY Aspirin 325 Mg Tablet 325 Mg PO DAILY Xanax (Alprazolam) 0.25 Mg Tablet 0.25 Mg PO PRN BID PRN Revlimid (Lenalidomide) 15 Mg Capsule 15 Mg PO DAILY Allergies Allergies: Coded Allergies: No Known Drug Allergies (Unverified , 12/06/20) ROS General: YES: Fatigue, Malaise PSYCHOLOGICAL ROS: No: Anxiety, Behavioral Disorder, Concentration difficultie, Decreased libido, Depression, Disorientation, Hallucinations, Hostility, Irritablity, Memory difficulties, Mood Swings, Obsessive thoughts, Physical abuse, Sexual abuse, Sleep disturbances, Suicidal ideation, Other Eyes: No Blurry vision, No Decreased vision, No Double vision, No Dry eyes, No Excessive tearing, No Eye Pain, No Itchy Eyes, No Loss of vision, No Photophobia, No Scotomata, No Uses contacts, No Uses glasses, No Other HEENT: YES: Heacaches; No: Visual Changes, Hearing change, Nasal congestion, Nasal discharge, Oral lesions, Sinus pain, Sore Throat, Epistaxis, Sneezing, Snoring, Tinnitus, Vertigo, Vocal changes, Other Respiratory: No: Cough, Hemoptysis, Orthopnea, Pleuritic Pain, Shortness of breath, SOB with excertion, Sputum Changes, Stridor, Tachypnea, Wheezing, Other Cardiovascular: No Palpitations, No Orthopnea, No Paroxysmal Noc. Dyspnea, No Edema, No Lt Headedness, No Other Gastrointestinal: Yes Nausea; No Vomiting, No Abdominal Pain, No Diarrhea, No Constipation, No Melena, No Hematochezia, No Other Genitourinary: No Dysuria, No Frequency, No Incontinence, No Hematuria, No Retention, No Discharge, No Urgency, No Pain, No Flank Pain, No Other, No , No , No , No , No , No , No Musculoskeletal: Yes Muscle Pain (neck, sore, ), Yes Muscular Weakness; No Gait Disturbance, No Joint Pain, No Joint Stiffness, No Joint Swelling, No Pain In:, No Swelling In:, No Other Neurological: No Behavorial Changes, No Bowel/Bladder ControlChng, No Confusion, No Dizziness, No Gait Disturbance, No Headaches, No Impaired Coord/balance, No Memory Loss, No Numbness/Tingling, No Seizures, No Speech Problems, No Tremors, No Visual Changes, No Weakness, No Other Skin: No Dry Skin, No Eczema, No Hair Changes, No Lumps, No Mole Changes, No Mottling, No Nail Changes, No Pruritus, No Rash, No Skin Lesion Changes, No Other, No Acne Vitals Vitals Vital Signs Date Time Temp Pulse Resp B/P (MAP) Pulse Ox O2 Delivery O2 Flow Rate FiO2 9/5/21 07:00 97.5 56 20 116/54 (74) 100 Room Air 97.5 Physical Exam General: Alert, Cooperative, mild distress Lungs: Clear Abdomen: Normal bowel sounds, Soft, No tenderness Extremities: No clubbing, No edema, Normal pulses Skin: No breakdown Labs LABS PATIENT: GIANNA GARCIA ACCOUNT: [id number] : 1975 LOCATION: [facility] AGE: 45 SEX: M EXAM STATUS: ADM IN ORD. PHYSICIAN: EMILE SANTOS MD REASON: new seizure. patient denies any known cause.hx of seizure 30 yrs ago PROCEDURE: BRAIN W/O CONTRAST EXAM: MRI BRAIN WO 12/09/2020 1:55 PM CLINICAL INDICATION: New seizures. COMPARISON: CT head 12/06/2020 TECHNIQUE: Multiplanar multisequence MR images of the brain without contrast FINDINGS: There is a 1.3 x 1.1 x 0.7 cm mildly T2 hyperintense subependymal nodule in the left lateral ventricle just above the foramen of [place] (image 16- 17, series 8; image 13, series 7). No surrounding parenchymal signal abnormality or midline shift. There is mild deformity of the left lateral ventricle. The right lateral ventricle is mildly enlarged. Third and fourth ventricles are normal. Sulci are normal. No restricted diffusion to suggest acute or recent infarct. Ventricles and sulci are within normal limits. No intracranial hemorrhage or extra-axial fluid collection. Vascular flow voids are normal. There is fluid in the maxillary sinuses and mucosal thickening in the ethmoid air cells and sphenoid sinuses. Mastoid air cells are clear. Skull and scalp are normal. Globes and orbits are intact. IMPRESSION: 1. 1.3 cm subependymal nodule in the left lateral ventricle. Differential diagnosis includes heterotopic odonnell matter, subependymal giant cell astrocytoma, or subependymoma. Recommend MRI brain with contrast for further evaluation. 2. Paranasal sinus disease. Electronically signed by: Rosy Brink MD (12/09/2020 3:39 PM) [id number] DICTATED and SIGNED BY: ROSY BRINK MD DATE: 12/09/20 [id number] PATIENT: GIANNA GARCIA ACCOUNT: [id number] : 1975 LOCATION: ER AGE: 45 SEX: M EXAM STATUS: REG ER ORD. PHYSICIAN: ROSY CAMACHO MD REASON: seizure, h/o left ventricular mass PROCEDURE: CT HEAD WO CONTRAST EXAMINATION: CT HEAD/BRAIN WO CLINICAL HISTORY: Seizure, h/o left ventricular mass TECHNIQUE: Serial axial images without IV contrast were obtained from the vertex to the foramen magnum. CT Dose Reduction Employed: One or more of the following individualized dose reduction techniques were utilized for this examination: 1. Automated exposure control 2. Adjustment of the mA and/or kV according to patient size 3. Use of iterative reconstruction technique. COMPARISON: MRI brain 12/09/2020, CT head 12/06/2020 FINDINGS: Acute Change: No evidence of an acute infarct or other acute parenchymal process. Hemorrhage: No evidence of acute intracranial hemorrhage. Mass Lesion/Mass Effect: Prominent asymmetry in the region of the left thalamus and basal ganglia at site of overlying small subependymal nodule which is best visualized on comparison MRI. The degree of asymmetry is similar to slightly more pronounced compared to prior study which may be in part related to patient positioning and imaging technique. No new or significant midline shift. Parenchyma: No significant volume loss. Parenchyma otherwise within normal limits for age. Ventricles: Poorly visualized small subependymal nodule in the region of the left caudothalamic groove, better appreciated on comparison MRI. Asymmetric prominence of the right lateral ventricle, nonspecific but similar to prior study. Paranasal Sinuses and Skull Base: Increased multifocal sinusitis with changes of chronic left sphenoid sinusitis. Visualized skull base and soft tissues unremarkable. IMPRESSION: No evidence of acute intracranial abnormality. Similar asymmetry in the region of the left thalamus and basal ganglia with overlying small subependymal nodule as described. If MRI brain with intravenous contrast has not been obtained since the comparison MRI, this is again recommended for further evaluation and could be obtained on a nonemergent/outpatient basis. Increased multifocal sinusitis as described. Electronically signed by: Jose Monroy DO (05/06/2021 9:16 AM) [id number] DICTATED and SIGNED BY: JOSE MONROY DO DATE: 05/06/21 [id number] Laboratory Tests Test 9/4/21 12:43 05/06/21 14:58 05/07/21 08:00 Troponin I Quantitative 0.020 ng/mL (0.000-0.055) SARS-CoV-2 RNA (TING) Negative (Negative) SARS-CoV-2 Antigen (Rapid) Negative (NEGATIVE) White Blood Count 3.0 x10^3/uL (4.0-11.0) Red Blood Count 3.12 x10^6/uL (4.30-5.70) Hemoglobin 11.1 g/dL (13.0-17.5) Hematocrit 33.2 % (39.0-53.0) Mean Corpuscular Volume 107 fL (79-100) Mean Corpuscular Hemoglobin 36 pg (25-35) Mean Corpuscular Hemoglobin Concent 34 g/dL (31-37) Red Cell Distribution Width 16.0 % (11.5-14.5) Platelet Count 76 x10^3/uL (140-400) Neutrophils (%) (Auto) 64 % (31-73) Lymphocytes (%) (Auto) 22 % (24-48) Monocytes (%) (Auto) 9 % (0-9) Eosinophils (%) (Auto) 5 % (0-3) Basophils (%) (Auto) 0 % (0-3) Neutrophils # (Auto) 1.9 x10^3/uL (1.8-7.7) Lymphocytes # (Auto) 0.7 x10^3/uL (1.0-4.8) Monocytes # (Auto) 0.3 x10^3/uL (0.0-1.1) Eosinophils # (Auto) 0.2 x10^3/uL (0.0-0.7) Basophils # (Auto) 0.0 x10^3/uL (0.0-0.2) Sodium Level 142 mmol/L (136-145) Potassium Level 3.8 mmol/L (3.5-5.1) Chloride Level 108 mmol/L (98-107) Carbon Dioxide Level 23 mmol/L (21-32) Anion Gap 11 (6-14) Blood Urea Nitrogen 27 mg/dL (8-26) Creatinine 2.9 mg/dL (0.7-1.3) Estimated GFR (Cockcroft-Gault) 23.8 BUN/Creatinine Ratio 9 (6-20) Glucose Level 67 mg/dL (70-99) Calcium Level 6.9 mg/dL (8.5-10.1) Total Bilirubin 0.4 mg/dL (0.2-1.0) Aspartate Amino Transf (AST/SGOT) 40 U/L (15-37) Alanine Aminotransferase (ALT/SGPT) 30 U/L (16-63) Alkaline Phosphatase 48 U/L (46-116) Total Protein 7.1 g/dL (6.4-8.2) Albumin 2.7 g/dL (3.4-5.0) Albumin/Globulin Ratio 0.6 (1.0-1.7) Assessment and Plan Assessmemt and Plan Problems Medical Problems: (1) Renal insufficiency Status: Acute Comment Review of Relevant I have reviewed the following items stan (where applicable) has been applied. Labs Laboratory Tests Test 05/06/21 06:51 05/06/21 07:30 05/06/21 07:40 05/06/21 12:43 White Blood Count 5.8 x10^3/uL (4.0-11.0) Red Blood Count 3.47 x10^6/uL (4.30-5.70) Hemoglobin 12.5 g/dL (13.0-17.5) Hematocrit 36.5 % (39.0-53.0) Mean Corpuscular Volume 105 fL (79-100) Mean Corpuscular Hemoglobin 36 pg (25-35) Mean Corpuscular Hemoglobin Concent 34 g/dL (31-37) Red Cell Distribution Width 15.4 % (11.5-14.5) Platelet Count 108 x10^3/uL (140-400) Neutrophils (%) (Auto) 74 % (31-73) Lymphocytes (%) (Auto) 18 % (24-48) Monocytes (%) (Auto) 7 % (0-9) Eosinophils (%) (Auto) 1 % (0-3) Basophils (%) (Auto) 1 % (0-3) Neutrophils # (Auto) 4.3 x10^3/uL (1.8-7.7) Lymphocytes # (Auto) 1.0 x10^3/uL (1.0-4.8) Monocytes # (Auto) 0.4 x10^3/uL (0.0-1.1) Eosinophils # (Auto) 0.0 x10^3/uL (0.0-0.7) Basophils # (Auto) 0.0 x10^3/uL (0.0-0.2) Segmented Neutrophils % 58 % (35-66) Band Neutrophils % 14 % (0-9) Lymphocytes % 15 % (24-48) Atypical Lymphocytes % (Manual) 3 % (0-0) Monocytes % 7 % (0-10) Eosinophils % 3 % (0-5) Platelet Estimate Decreased (ADEQUATE) Lactic Acid Level 1.0 mmol/L (0.4-2.0) Sodium Level 135 mmol/L (136-145) Potassium Level 3.8 mmol/L (3.5-5.1) Chloride Level 101 mmol/L (98-107) Carbon Dioxide Level 25 mmol/L (21-32) Anion Gap 9 (6-14) Blood Urea Nitrogen 27 mg/dL (8-26) Creatinine 2.5 mg/dL (0.7-1.3) Estimated GFR (Cockcroft-Gault) 28.2 BUN/Creatinine Ratio 11 (6-20) Glucose Level 92 mg/dL (70-99) Calcium Level 8.0 mg/dL (8.5-10.1) Phosphorus Level 2.7 mg/dL (2.6-4.7) Magnesium Level 2.9 mg/dL (1.8-2.4) Total Bilirubin 0.4 mg/dL (0.2-1.0) Aspartate Amino Transf (AST/SGOT) 10 U/L (15-37) Alanine Aminotransferase (ALT/SGPT) 31 U/L (16-63) Alkaline Phosphatase 63 U/L (46-116) Creatine Kinase 378 U/L (39-308) Myoglobin 2429 ng/mL (16-96) Troponin I Quantitative < 0.017 ng/mL (0.000-0.055) 0.020 ng/mL (0.000-0.055) Total Protein 7.9 g/dL (6.4-8.2) Albumin 3.4 g/dL (3.4-5.0) Albumin/Globulin Ratio 0.8 (1.0-1.7) Ethyl Alcohol Level < 10 mg/dL (0-10) Urine Collection Type Unknown Urine Color Yellow Urine Clarity Cloudy Urine pH 5.0 (<5.0-8.0) Urine Specific [place] 1.020 (1.000-1.030) Urine Protein 100 mg/dL (NEG-TRACE) Urine Glucose (UA) Negative mg/dL (NEG) Urine Ketones (Stick) Negative mg/dL (NEG) Urine Blood Trace (NEG) Urine Nitrite Negative (NEG) Urine Bilirubin Negative (NEG) Urine Urobilinogen Dipstick 0.2 mg/dL (0.2 mg/dL) Urine Leukocyte Esterase Negative (NEG) Urine RBC 1-2 /HPF (0-2) Urine WBC Occ /HPF (0-4) Urine Squamous Epithelial Cells Occ /LPF Urine Amorphous Sediment Present /HPF Urine Bacteria Few /HPF (0-FEW) Urine Hyaline Casts Few /HPF Urine Granular Casts Occasional /HPF Urine Mucus Mod /LPF Urine Opiates Screen Neg (NEG) Urine Methadone Screen Neg (NEG) Urine Barbiturates Neg (NEG) Urine Phencyclidine Screen Neg (NEG) Urine Amphetamine/Methamphetamine Neg (NEG) Urine Benzodiazepines Screen Neg (NEG) Urine Cocaine Screen Neg (NEG) Urine Cannabinoids Screen Neg (NEG) Urine Ethyl Alcohol Neg (NEG) Test 05/06/21 14:58 05/07/21 08:00 SARS-CoV-2 RNA (TING) Negative (Negative) SARS-CoV-2 Antigen (Rapid) Negative (NEGATIVE) White Blood Count 3.0 x10^3/uL (4.0-11.0) Red Blood Count 3.12 x10^6/uL (4.30-5.70) Hemoglobin 11.1 g/dL (13.0-17.5) Hematocrit 33.2 % (39.0-53.0) Mean Corpuscular Volume 107 fL (79-100) Mean Corpuscular Hemoglobin 36 pg (25-35) Mean Corpuscular Hemoglobin Concent 34 g/dL (31-37) Red Cell Distribution Width 16.0 % (11.5-14.5) Platelet Count 76 x10^3/uL (140-400) Neutrophils (%) (Auto) 64 % (31-73) Lymphocytes (%) (Auto) 22 % (24-48) Monocytes (%) (Auto) 9 % (0-9) Eosinophils (%) (Auto) 5 % (0-3) Basophils (%) (Auto) 0 % (0-3) Neutrophils # (Auto) 1.9 x10^3/uL (1.8-7.7) Lymphocytes # (Auto) 0.7 x10^3/uL (1.0-4.8) Monocytes # (Auto) 0.3 x10^3/uL (0.0-1.1) Eosinophils # (Auto) 0.2 x10^3/uL (0.0-0.7) Basophils # (Auto) 0.0 x10^3/uL (0.0-0.2) Sodium Level 142 mmol/L (136-145) Potassium Level 3.8 mmol/L (3.5-5.1) Chloride Level 108 mmol/L (98-107) Carbon Dioxide Level 23 mmol/L (21-32) Anion Gap 11 (6-14) Blood Urea Nitrogen 27 mg/dL (8-26) Creatinine 2.9 mg/dL (0.7-1.3) Estimated GFR (Cockcroft-Gault) 23.8 BUN/Creatinine Ratio 9 (6-20) Glucose Level 67 mg/dL (70-99) Calcium Level 6.9 mg/dL (8.5-10.1) Total Bilirubin 0.4 mg/dL (0.2-1.0) Aspartate Amino Transf (AST/SGOT) 40 U/L (15-37) Alanine Aminotransferase (ALT/SGPT) 30 U/L (16-63) Alkaline Phosphatase 48 U/L (46-116) Total Protein 7.1 g/dL (6.4-8.2) Albumin 2.7 g/dL (3.4-5.0) Albumin/Globulin Ratio 0.6 (1.0-1.7) Laboratory Tests Test 05/06/21 12:43 05/06/21 14:58 05/07/21 08:00 Troponin I Quantitative 0.020 ng/mL (0.000-0.055) SARS-CoV-2 RNA (TING) Negative (Negative) SARS-CoV-2 Antigen (Rapid) Negative (NEGATIVE) White Blood Count 3.0 x10^3/uL (4.0-11.0) Red Blood Count 3.12 x10^6/uL (4.30-5.70) Hemoglobin 11.1 g/dL (13.0-17.5) Hematocrit 33.2 % (39.0-53.0) Mean Corpuscular Volume 107 fL (79-100) Mean Corpuscular Hemoglobin 36 pg (25-35) Mean Corpuscular Hemoglobin Concent 34 g/dL (31-37) Red Cell Distribution Width 16.0 % (11.5-14.5) Platelet Count 76 x10^3/uL (140-400) Neutrophils (%) (Auto) 64 % (31-73) Lymphocytes (%) (Auto) 22 % (24-48) Monocytes (%) (Auto) 9 % (0-9) Eosinophils (%) (Auto) 5 % (0-3) Basophils (%) (Auto) 0 % (0-3) Neutrophils # (Auto) 1.9 x10^3/uL (1.8-7.7) Lymphocytes # (Auto) 0.7 x10^3/uL (1.0-4.8) Monocytes # (Auto) 0.3 x10^3/uL (0.0-1.1) Eosinophils # (Auto) 0.2 x10^3/uL (0.0-0.7) Basophils # (Auto) 0.0 x10^3/uL (0.0-0.2) Sodium Level 142 mmol/L (136-145) Potassium Level 3.8 mmol/L (3.5-5.1) Chloride Level 108 mmol/L (98-107) Carbon Dioxide Level 23 mmol/L (21-32) Anion Gap 11 (6-14) Blood Urea Nitrogen 27 mg/dL (8-26) Creatinine 2.9 mg/dL (0.7-1.3) Estimated GFR (Cockcroft-Gault) 23.8 BUN/Creatinine Ratio 9 (6-20) Glucose Level 67 mg/dL (70-99) Calcium Level 6.9 mg/dL (8.5-10.1) Total Bilirubin 0.4 mg/dL (0.2-1.0) Aspartate Amino Transf (AST/SGOT) 40 U/L (15-37) Alanine Aminotransferase (ALT/SGPT) 30 U/L (16-63) Alkaline Phosphatase 48 U/L (46-116) Total Protein 7.1 g/dL (6.4-8.2) Albumin 2.7 g/dL (3.4-5.0) Albumin/Globulin Ratio 0.6 (1.0-1.7) Medications Current Medications Levetiracetam 1000 mg/Dextrose 110 ml @ 440 mls/hr 1X ONCE IV Last administered on 05/06/21at 08:41; Start 05/06/21 at 08:30; Stop 05/06/21 at 08:44; Status DC Ondansetron HCl (Zofran) 4 mg PRN Q8HRS PRN IVP NAUSEA/VOMITING Last administered on 05/06/21at 20:50; Start 05/06/21 at 10:15; Stop 05/07/21 at 10:14; Status DC Morphine Sulfate (Morphine Sulfate) 4 mg PRN Q2HR PRN IVP PAIN Last administered on 05/06/21at 20:50; Start 05/06/21 at 10:15; Stop 05/07/21 at 10:14; Status DC Sodium Chloride 1,000 ml @ 125 mls/hr Q8H IV Last administered on 05/07/21at 03:23; Start 05/06/21 at 10:15; Stop 05/07/21 at 10:14; Status DC Acetaminophen (Tylenol) 650 mg PRN Q4HRS PRN PO FEVER > 100.3'F Last administered on 05/06/21at 10:51; Start 05/06/21 at 10:15; Stop 05/07/21 at 10:14; Status DC Lacosamide (Vimpat) 50 mg BID PO Last administered on 05/07/21at 08:25; Start 05/06/21 at 21:00 Lacosamide (Vimpat) 50 mg ONCE ONCE PO Last administered on 05/06/21at 16:57; Start 05/06/21 at 16:00; Stop 05/06/21 at 16:01; Status DC Active Scripts Active Keppra (Levetiracetam) 500 Mg Tablet 1 Tab PO BID 30 Days Reported Ninlaro (Ixazomib Citrate) 4 Mg Capsule 4 Mg PO QFR START 12/16 Fish Oil 1,000 mg Softgel ([place]-3/Dha/Epa/Fish Oil) 1,000 Mg Capsule 1,000 Mg PO DAILY Valacyclovir (Valacyclovir Hcl) 1,000 Mg Tablet 1,000 Mg PO DAILY Zofran (Ondansetron Hcl) 4 Mg Tablet 8 Mg PO BID PRN Calcium Carbonate 500 Mg Tablet 1,250 Mg PO DAILY Aspirin 325 Mg Tablet 325 Mg PO DAILY Xanax (Alprazolam) 0.25 Mg Tablet 0.25 Mg PO PRN BID PRN Revlimid (Lenalidomide) 15 Mg Capsule 15 Mg PO DAILY Vitals/I & O Vital Sign - Last 24 Hours 05/06/21 05/06/21 05/06/21 05/06/21 10:56 11:12 12:12 13:12 Pulse 60 58 62 Resp 16 16 16 16 B/P (MAP) 122/71 (88) 121/70 (87) 123/73 (90) Pulse Ox 95 94 96 93 O2 Delivery Room Air Room Air Room Air Room Air 05/06/21 05/06/21 05/06/21 05/06/21 14:46 15:13 15:52 19:00 Temp 97.9 97.6 97.9 97.6 Pulse 61 63 Resp 18 20 B/P (MAP) 121/70 (87) 121/69 (86) Pulse Ox 96 96 96 O2 Delivery Room Air Room Air Room Air Room Air 05/06/21 05/06/21 05/06/21 05/06/21 20:00 20:50 21:20 23:00 Temp 98.2 98.2 Pulse 49 Resp 18 18 18 B/P (MAP) 116/79 (91) Pulse Ox 96 96 100 O2 Delivery Room Air Room Air Room Air Room Air 05/07/21 05/07/21 03:05 07:00 Temp 98.0 97.5 98.0 97.5 Pulse 57 56 Resp 20 20 B/P (MAP) 123/60 (81) 116/54 (74) Pulse Ox 95 100 O2 Delivery Room Air Room Air Intake and Output 05/06/21 05/06/21 05/07/21 15:00 23:00 07:00 Intake Total 240 ml Balance 240 ml Justicifation of Admission Dx: Justifications for Admission: Justification of Admission Dx: Yes BIGG BARKSDALE MD May 07, 2021 10:38
[2021-05-07 11:00] VITALS: BP 114/76
--- NOTE | 2021-05-07 13:38 | CONS ---
DATE OF CONSULTATION: 05/07/2021 REQUESTING PHYSICIAN: Hospitalist. REASON FOR CONSULTATION: Renal failure. HISTORY OF PRESENT ILLNESS: This is a 45-year-old gentleman Dictation Ends Here. PANCHO DR: Amanda TID: [id number]
[2021-05-07 15:00] VITALS: BP 127/71
--- NOTE | 2021-05-07 17:27 | CONS ---
DATE OF CONSULTATION: 05/07/2021 NEPHROLOGY CONSULTATION REQUESTING PHYSICIAN: Hospitalist. REASON: Renal failure. HISTORY OF PRESENT ILLNESS: This is a 45-year-old gentleman with history of known seizure disorder since having discontinued his Keppra with seizure activity. The patient has history of multiple myeloma, having been treated with chemotherapy. This has felt to have led to renal insufficiency. The patient denies history of nephrolithiasis, gross hematuria, difficult urination. He is not diabetic and does not have hypertension. PAST MEDICAL HISTORY: 1. Multiple myeloma. 2. Chronic kidney disease, undetermined severity. 3. Seizure disorder. ALLERGIES: None. MEDICATIONS: Reviewed per med list. FAMILY HISTORY: Noncontributory. SOCIAL HISTORY: The patient resides . REVIEW OF SYSTEMS: ABDOMEN: No nausea, vomiting, diarrhea. No GE reflux disease. MUSCULOSKELETAL: History of arthritis or myalgias. HEMATOLOGIC: He has history of multiple myeloma, which has been treated. SKIN: No history of skin cancers or rashes. GENITOURINARY: No history of prostate disease, difficult urination or nephrolithiasis. PSYCHIATRIC: No history of anxiety, depression. NEUROLOGIC: The patient has history of seizure disorder. PHYSICAL EXAMINATION: GENERAL APPEARANCE: The patient is awake, conversant. HEENT: Clear. NECK: No increased JVD. LUNGS: Clear. CARDIAC: Without S3 or rub. ABDOMEN: Slightly obese, nontender. EXTREMITIES: Bilateral lower extremity edema 1+. NEUROLOGIC: Nonfocal, nonlocalizing. No further seizures. PSYCHIATRIC: Appears dysphoric. LABORATORY DATA: White count 5.8, hemoglobin 12.5, hematocrit 36.5, platelets are 108. Sodium 142, potassium 3.8, chloride 108, CO2 of 23, BUN 27, creatinine 2.9. GFR 23.8. CK 378. Myoglobin 2429. IMPRESSION: 1. Renal failure - at least in part related to rhabdomyolysis. He has myoglobinuria noted. Likely has underlying chronic kidney disease as well. 2. History of multiple myeloma. 3. Seizure disorder - status post self-discontinuation of medications. RECOMMENDATIONS: 1. Restart medications for epilepsy. 2. Continue hydration for rhabdomyolysis. 3. Trend labs with you. BLANK/CARLOS/GRABIEL DR: Amanda TID: [id number]
[2021-05-07 19:30] VITALS: BP 136/75
[2021-05-07 23:09] VITALS: BP 93/73
[2021-05-08] MEDS: IV NORMAL SALINE 1000ML BAG 1,000 ML IV SCH ×4 (01:19→23:48)
[2021-05-08 02:42] VITALS: BP 121/73
[2021-05-08 07:00] VITALS: BP 128/76
[2021-05-08 07:28] LABS: ALBUMIN 2.6 g/dL (3.4-5.0); ALBUMIN/GLOBULIN RATIO 0.6 (1.0-1.7); CALCIUM 6.9 mg/dL (8.5-10.1); CREATININE 2.3 mg/dL (0.7-1.3); MAGNESIUM 2.5 mg/dL (1.8-2.4); POTASSIUM 3.7 mmol/L (3.5-5.1); TOTAL BILIRUBIN 0.3 mg/dL (0.2-1.0)
[2021-05-08] MEDS: LACOSAMIDE 50 MG TABLET PO SCH ×2 (09:02→19:58)
[2021-05-08 11:18] VITALS: BP 128/85
--- NOTE | 2021-05-08 13:33 | PDOC ---
PROGRESS NOTES Date of Service DATE: 05/08/21 TIME: 13:30 Subjective Subjective SEEN IN FOLLOW UP OF ARF ON CKD Objective Objective Vital Signs Date Time Temp Pulse Resp B/P (MAP) Pulse Ox O2 Delivery O2 Flow Rate FiO2 05/08/21 11:18 97.5 57 16 128/85 (99) 97 Room Air 97.5 Intake and Output 05/08/21 07:00 Intake Total 1420 ml Output Total 1 ml Balance 1419 ml Intake Oral 1420 ml Output Urine Total 1 ml # Voids 3 # Bowel Movements 1 Physical Exam Heart: Regular rate, Normal S1, Normal S2, No murmurs, Gallops Extremities: No clubbing, No cyanosis, No edema, Normal pulses, No tenderness/swelling General: Alert, Oriented X3, Cooperative, No acute distress Lungs: Clear to auscultation, Normal air movement Psych/Mental Status: Mental status NL, Mood NL Diagnosis RENAL FAILURE: Acute (Acute tubular necrosis), Chronic (CKD stage III), Other (RHABDOMYOLYSIS) Assessment Assessment Problems Medical Problems: (1) Renal insufficiency Status: Acute Plan Plan of Care CK HIGHER AND LIKELY DUE TO WASHOUT PHASE OF RHABDOMYOLYSIS. CONT IVF. RENAL FUNCTION IS IMPROVING. ENCOURAGED TO FOLLOW UP WITH NEUROLOGY FOR SEIZURE MED HE CAN TOLERATE Comment Review of Relevant I have reviewed the following items stan (where applicable) has been applied. Labs Laboratory Tests Test 05/06/21 14:58 05/07/21 08:00 05/08/21 06:00 SARS-CoV-2 RNA (TING) Negative (Negative) SARS-CoV-2 Antigen (Rapid) Negative (NEGATIVE) White Blood Count 3.0 x10^3/uL (4.0-11.0) Red Blood Count 3.12 x10^6/uL (4.30-5.70) Hemoglobin 11.1 g/dL (13.0-17.5) Hematocrit 33.2 % (39.0-53.0) Mean Corpuscular Volume 107 fL (79-100) Mean Corpuscular Hemoglobin 36 pg (25-35) Mean Corpuscular Hemoglobin Concent 34 g/dL (31-37) Red Cell Distribution Width 16.0 % (11.5-14.5) Platelet Count 76 x10^3/uL (140-400) Neutrophils (%) (Auto) 64 % (31-73) Lymphocytes (%) (Auto) 22 % (24-48) Monocytes (%) (Auto) 9 % (0-9) Eosinophils (%) (Auto) 5 % (0-3) Basophils (%) (Auto) 0 % (0-3) Neutrophils # (Auto) 1.9 x10^3/uL (1.8-7.7) Lymphocytes # (Auto) 0.7 x10^3/uL (1.0-4.8) Monocytes # (Auto) 0.3 x10^3/uL (0.0-1.1) Eosinophils # (Auto) 0.2 x10^3/uL (0.0-0.7) Basophils # (Auto) 0.0 x10^3/uL (0.0-0.2) Sodium Level 142 mmol/L (136-145) 141 mmol/L (136-145) Potassium Level 3.8 mmol/L (3.5-5.1) 3.7 mmol/L (3.5-5.1) Chloride Level 108 mmol/L (98-107) 108 mmol/L (98-107) Carbon Dioxide Level 23 mmol/L (21-32) 24 mmol/L (21-32) Anion Gap 11 (6-14) 9 (6-14) Blood Urea Nitrogen 27 mg/dL (8-26) 23 mg/dL (8-26) Creatinine 2.9 mg/dL (0.7-1.3) 2.3 mg/dL (0.7-1.3) Estimated GFR (Cockcroft-Gault) 23.8 31.0 BUN/Creatinine Ratio 9 (6-20) 10 (6-20) Glucose Level 67 mg/dL (70-99) 79 mg/dL (70-99) Calcium Level 6.9 mg/dL (8.5-10.1) 6.9 mg/dL (8.5-10.1) Total Bilirubin 0.4 mg/dL (0.2-1.0) 0.3 mg/dL (0.2-1.0) Aspartate Amino Transf (AST/SGOT) 40 U/L (15-37) 29 U/L (15-37) Alanine Aminotransferase (ALT/SGPT) 30 U/L (16-63) 31 U/L (16-63) Alkaline Phosphatase 48 U/L (46-116) 46 U/L (46-116) Total Protein 7.1 g/dL (6.4-8.2) 7.0 g/dL (6.4-8.2) Albumin 2.7 g/dL (3.4-5.0) 2.6 g/dL (3.4-5.0) Albumin/Globulin Ratio 0.6 (1.0-1.7) 0.6 (1.0-1.7) Magnesium Level 2.5 mg/dL (1.8-2.4) Creatine Kinase 933 U/L (39-308) Laboratory Tests Test 05/08/21 06:00 Sodium Level 141 mmol/L (136-145) Potassium Level 3.7 mmol/L (3.5-5.1) Chloride Level 108 mmol/L (98-107) Carbon Dioxide Level 24 mmol/L (21-32) Anion Gap 9 (6-14) Blood Urea Nitrogen 23 mg/dL (8-26) Creatinine 2.3 mg/dL (0.7-1.3) Estimated GFR (Cockcroft-Gault) 31.0 BUN/Creatinine Ratio 10 (6-20) Glucose Level 79 mg/dL (70-99) Calcium Level 6.9 mg/dL (8.5-10.1) Magnesium Level 2.5 mg/dL (1.8-2.4) Total Bilirubin 0.3 mg/dL (0.2-1.0) Aspartate Amino Transf (AST/SGOT) 29 U/L (15-37) Alanine Aminotransferase (ALT/SGPT) 31 U/L (16-63) Alkaline Phosphatase 46 U/L (46-116) Creatine Kinase 933 U/L (39-308) Total Protein 7.0 g/dL (6.4-8.2) Albumin 2.6 g/dL (3.4-5.0) Albumin/Globulin Ratio 0.6 (1.0-1.7) Medications Current Medications Levetiracetam 1000 mg/Dextrose 110 ml @ 440 mls/hr 1X ONCE IV Last administered on 05/06/21at 08:41; Start 05/06/21 at 08:30; Stop 05/06/21 at 08:44; Status DC Ondansetron HCl (Zofran) 4 mg PRN Q8HRS PRN IVP NAUSEA/VOMITING Last administered on 05/06/21at 20:50; Start 05/06/21 at 10:15; Stop 05/07/21 at 10:14; Status DC Morphine Sulfate (Morphine Sulfate) 4 mg PRN Q2HR PRN IVP PAIN Last administered on 05/06/21at 20:50; Start 05/06/21 at 10:15; Stop 05/07/21 at 10:14; Status DC Sodium Chloride 1,000 ml @ 125 mls/hr Q8H IV Last administered on 05/07/21at 03:23; Start 05/06/21 at 10:15; Stop 05/07/21 at 10:14; Status DC Acetaminophen (Tylenol) 650 mg PRN Q4HRS PRN PO FEVER > 100.3'F Last administered on 05/06/21at 10:51; Start 05/06/21 at 10:15; Stop 05/07/21 at 10:14; Status DC Lacosamide (Vimpat) 50 mg BID PO Last administered on 05/08/21at 09:02; Start 05/06/21 at 21:00 Lacosamide (Vimpat) 50 mg ONCE ONCE PO Last administered on 05/06/21at 16:57; Start 05/06/21 at 16:00; Stop 05/06/21 at 16:01; Status DC Sodium Chloride 1,000 ml @ 125 mls/hr Q8H IV Last administered on 05/08/21at 09:03; Start 05/07/21 at 16:15 Active Scripts Active Keppra (Levetiracetam) 500 Mg Tablet 1 Tab PO BID 30 Days Reported Ninlaro (Ixazomib Citrate) 4 Mg Capsule 4 Mg PO QFR START 12/16 Fish Oil 1,000 mg Softgel ([place]-3/Dha/Epa/Fish Oil) 1,000 Mg Capsule 1,000 Mg PO DAILY Valacyclovir (Valacyclovir Hcl) 1,000 Mg Tablet 1,000 Mg PO DAILY Zofran (Ondansetron Hcl) 4 Mg Tablet 8 Mg PO BID PRN Calcium Carbonate 500 Mg Tablet 1,250 Mg PO DAILY Aspirin 325 Mg Tablet 325 Mg PO DAILY Xanax (Alprazolam) 0.25 Mg Tablet 0.25 Mg PO PRN BID PRN Revlimid (Lenalidomide) 15 Mg Capsule 15 Mg PO DAILY Vitals/I & O Vital Sign - Last 24 Hours 05/07/21 05/07/21 05/07/21 05/07/21 15:00 19:30 20:19 23:09 Temp 97.7 97.8 98.5 97.7 97.8 98.5 Pulse 50 64 60 Resp 20 16 16 B/P (MAP) 127/71 (89) 136/75 (95) 93/73 (80) Pulse Ox 96 93 94 O2 Delivery Room Air Room Air Room Air Room Air 05/08/21 05/08/21 05/08/21 05/08/21 02:42 07:00 08:00 11:18 Temp 97.3 98.1 97.5 97.3 98.1 97.5 Pulse 52 62 57 Resp 16 16 16 B/P (MAP) 121/73 (89) 128/76 (93) 128/85 (99) Pulse Ox 94 95 97 O2 Delivery Room Air Room Air Room Air Room Air Intake and Output 05/07/21 05/07/21 05/08/21 15:00 23:00 07:00 Intake Total 440 ml 740 ml 240 ml Output Total 1 ml Balance 440 ml 740 ml 239 ml Justifications for Admission Other Justification BHAVANI MAGAÑA MD May 08, 2021 13:33
[2021-05-08 15:00] VITALS: BP 130/81
--- NOTE | 2021-05-08 15:04 | PDOC ---
[facility] PROGRESS NOTE Date of Service DOS: DATE: 05/08/21 TIME: 15:02 Chief Complaint Chief Complaint \ Assessment/Plan Assessment/Plan seizure, acute with known seizure disorder, he has seen a Neurologist in the [employer] system 2 weeks ago asymmetry in the region of the left thalamus and basal ganglia with overlying small subependymal nodule as described. 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 Differential diagnosis includes heterotopic odonnell matter, subependymal giant cell astrocytoma, or subependymoma post-ictal and confused acute renal failure, myoglobin up, low grade rhabdo, will hydrate aggresively probable CKD 3 multiple myeloma in remission brain mass, NOS not continue with Keppra provoked adverse effects. Vimpat 50 mg twice per day. History of Present Illness History of Present Illness History of Present Illness History of Present Illness Mr. Vasquez is a 45 year old male admit for seizure, arrived to ER by EMS. He feels like he had a seizure, is sore, but was not witnessed, his heard commotion, and found him with a bite to his own tongue and markedly lethargic he was hard asleep when I came to see him, and still a little confused. No bowel or bladder incontinence. prior known seizure disorder, he cannot remember the name of the Neurologist he saw recently in the [employer] system,. some known brain mass, has been treated for mult myeloma, in remission, he cannot remember now if he has had a allo transplant. noted that tghe treatment of multiple myeloma caused some renal injury 05/08/21 Patient seen and examined at bedside. Doing well no acute complaints. Creatinine a improving, approaching baseline. Like to monitor for more night to check labs again in the morning. Hopeful for discharge tomorrow. Vitals/I&O Vitals/I&O: Vital Signs Date Time Temp Pulse Resp B/P (MAP) Pulse Ox O2 Delivery O2 Flow Rate FiO2 05/08/21 11:18 97.5 57 16 128/85 (99) 97 Room Air 97.5 I & O 05/07/21 05/07/21 05/08/21 15:00 23:00 07:00 Intake Total 440 ml 740 ml 240 ml Output Total 1 ml Balance 440 ml 740 ml 239 ml Physical Exam General: Alert, Oriented X3, Cooperative, No acute distress Heart: Regular rate, Normal S1, Normal S2, No murmurs, Gallops Lungs: Clear Abdomen: Normal bowel sounds, Soft, No tenderness Extremities: No clubbing, No cyanosis, No edema, Normal pulses, No tenderness/swelling Skin: No breakdown Labs Labs: Laboratory Tests Test 05/08/21 06:00 Sodium Level 141 mmol/L (136-145) Potassium Level 3.7 mmol/L (3.5-5.1) Chloride Level 108 mmol/L (98-107) Carbon Dioxide Level 24 mmol/L (21-32) Anion Gap 9 (6-14) Blood Urea Nitrogen 23 mg/dL (8-26) Creatinine 2.3 mg/dL (0.7-1.3) Estimated GFR (Cockcroft-Gault) 31.0 BUN/Creatinine Ratio 10 (6-20) Glucose Level 79 mg/dL (70-99) Calcium Level 6.9 mg/dL (8.5-10.1) Magnesium Level 2.5 mg/dL (1.8-2.4) Total Bilirubin 0.3 mg/dL (0.2-1.0) Aspartate Amino Transf (AST/SGOT) 29 U/L (15-37) Alanine Aminotransferase (ALT/SGPT) 31 U/L (16-63) Alkaline Phosphatase 46 U/L (46-116) Creatine Kinase 933 U/L (39-308) Total Protein 7.0 g/dL (6.4-8.2) Albumin 2.6 g/dL (3.4-5.0) Albumin/Globulin Ratio 0.6 (1.0-1.7) Assessment and Plan Assessmemt and Plan Problems Medical Problems: (1) Renal insufficiency Status: Acute Comment Review of Relevant I have reviewed the following items stan (where applicable) has been applied. Medications: Current Medications Medications (Trade) Dose Ordered Sig/Suzie Route PRN Reason Start Time Stop Time Status Last Admin Dose Admin Sodium Chloride 1,000 ml @ 125 mls/hr Q8H IV 05/07/21 16:15 05/08/21 09:03 Justifications for Admission Other Justification TI SWAN MD May 08, 2021 15:04
[2021-05-08 19:00] VITALS: BP 129/81
--- NOTE | 2021-05-08 20:18 | PDOC ---
PROGRESS NOTES Date of Service DATE: 05/08/21 TIME: 20:14 Assessment Problems Medical Problems: (1) Renal insufficiency Status: Acute 4-Cbzkyzx-zk had seizures previously and was placed on Keppra but discontinued due to nightmares. So far he is tolerating lacosamide without difficulty. 3. Possible lesion on CT scan. He does follow-up with [facility] neurology. He should have a follow-up MRI at that facility for direct comparison. Plan 1. We will continue lacosamide 50 mg twice per day. He may increase to 100 mg twice per day after he has been on the medicine for 1 week. If there are breakthrough seizures the dosage may need further titration. 2. He should follow up with his neurologist that he saw 2 weeks ago at [facility]. Further imaging such as an MRI head would be per their discretion. Subjective I feel pretty good. This has all happened so fast. I am doing okay with the medication so far. Objective Vital Signs Date Time Temp Pulse Resp B/P (MAP) Pulse Ox O2 Delivery O2 Flow Rate FiO2 05/08/21 19:29 Room Air 05/08/21 15:00 98.5 66 16 130/81 (97) 95 98.5 Intake and Output 05/08/21 07:00 Intake Total 1420 ml Output Total 1 ml Balance 1419 ml Intake Oral 1420 ml Output Urine Total 1 ml # Voids 3 # Bowel Movements 1 PHYSICAL EXAM He was alert, awake and cooperative. Speech was fluent and clear. He had a good fund of recent and remote knowledge. Attention and concentration was intact. Sitting balance was normal. The eyes were conjugate and face symmetric . Movements were symmetric and well coordinated. Review of Relevant I have reviewed the following items stan (where applicable) has been applied. Labs Laboratory Tests Test 05/07/21 08:00 05/08/21 06:00 White Blood Count 3.0 x10^3/uL (4.0-11.0) Red Blood Count 3.12 x10^6/uL (4.30-5.70) Hemoglobin 11.1 g/dL (13.0-17.5) Hematocrit 33.2 % (39.0-53.0) Mean Corpuscular Volume 107 fL (79-100) Mean Corpuscular Hemoglobin 36 pg (25-35) Mean Corpuscular Hemoglobin Concent 34 g/dL (31-37) Red Cell Distribution Width 16.0 % (11.5-14.5) Platelet Count 76 x10^3/uL (140-400) Neutrophils (%) (Auto) 64 % (31-73) Lymphocytes (%) (Auto) 22 % (24-48) Monocytes (%) (Auto) 9 % (0-9) Eosinophils (%) (Auto) 5 % (0-3) Basophils (%) (Auto) 0 % (0-3) Neutrophils # (Auto) 1.9 x10^3/uL (1.8-7.7) Lymphocytes # (Auto) 0.7 x10^3/uL (1.0-4.8) Monocytes # (Auto) 0.3 x10^3/uL (0.0-1.1) Eosinophils # (Auto) 0.2 x10^3/uL (0.0-0.7) Basophils # (Auto) 0.0 x10^3/uL (0.0-0.2) Sodium Level 142 mmol/L (136-145) 141 mmol/L (136-145) Potassium Level 3.8 mmol/L (3.5-5.1) 3.7 mmol/L (3.5-5.1) Chloride Level 108 mmol/L (98-107) 108 mmol/L (98-107) Carbon Dioxide Level 23 mmol/L (21-32) 24 mmol/L (21-32) Anion Gap 11 (6-14) 9 (6-14) Blood Urea Nitrogen 27 mg/dL (8-26) 23 mg/dL (8-26) Creatinine 2.9 mg/dL (0.7-1.3) 2.3 mg/dL (0.7-1.3) Estimated GFR (Cockcroft-Gault) 23.8 31.0 BUN/Creatinine Ratio 9 (6-20) 10 (6-20) Glucose Level 67 mg/dL (70-99) 79 mg/dL (70-99) Calcium Level 6.9 mg/dL (8.5-10.1) 6.9 mg/dL (8.5-10.1) Total Bilirubin 0.4 mg/dL (0.2-1.0) 0.3 mg/dL (0.2-1.0) Aspartate Amino Transf (AST/SGOT) 40 U/L (15-37) 29 U/L (15-37) Alanine Aminotransferase (ALT/SGPT) 30 U/L (16-63) 31 U/L (16-63) Alkaline Phosphatase 48 U/L (46-116) 46 U/L (46-116) Total Protein 7.1 g/dL (6.4-8.2) 7.0 g/dL (6.4-8.2) Albumin 2.7 g/dL (3.4-5.0) 2.6 g/dL (3.4-5.0) Albumin/Globulin Ratio 0.6 (1.0-1.7) 0.6 (1.0-1.7) Magnesium Level 2.5 mg/dL (1.8-2.4) Creatine Kinase 933 U/L (39-308) Laboratory Tests Test 05/08/21 06:00 Sodium Level 141 mmol/L (136-145) Potassium Level 3.7 mmol/L (3.5-5.1) Chloride Level 108 mmol/L (98-107) Carbon Dioxide Level 24 mmol/L (21-32) Anion Gap 9 (6-14) Blood Urea Nitrogen 23 mg/dL (8-26) Creatinine 2.3 mg/dL (0.7-1.3) Estimated GFR (Cockcroft-Gault) 31.0 BUN/Creatinine Ratio 10 (6-20) Glucose Level 79 mg/dL (70-99) Calcium Level 6.9 mg/dL (8.5-10.1) Magnesium Level 2.5 mg/dL (1.8-2.4) Total Bilirubin 0.3 mg/dL (0.2-1.0) Aspartate Amino Transf (AST/SGOT) 29 U/L (15-37) Alanine Aminotransferase (ALT/SGPT) 31 U/L (16-63) Alkaline Phosphatase 46 U/L (46-116) Creatine Kinase 933 U/L (39-308) Total Protein 7.0 g/dL (6.4-8.2) Albumin 2.6 g/dL (3.4-5.0) Albumin/Globulin Ratio 0.6 (1.0-1.7) Medications Current Medications Levetiracetam 1000 mg/Dextrose 110 ml @ 440 mls/hr 1X ONCE IV Last administered on 05/06/21at 08:41; Start 05/06/21 at 08:30; Stop 05/06/21 at 08:44; Status DC Ondansetron HCl (Zofran) 4 mg PRN Q8HRS PRN IVP NAUSEA/VOMITING Last administered on 05/06/21at 20:50; Start 05/06/21 at 10:15; Stop 05/07/21 at 10:14; Status DC Morphine Sulfate (Morphine Sulfate) 4 mg PRN Q2HR PRN IVP PAIN Last administered on 05/06/21at 20:50; Start 05/06/21 at 10:15; Stop 05/07/21 at 10:14; Status DC Sodium Chloride 1,000 ml @ 125 mls/hr Q8H IV Last administered on 05/07/21at 03:23; Start 05/06/21 at 10:15; Stop 05/07/21 at 10:14; Status DC Acetaminophen (Tylenol) 650 mg PRN Q4HRS PRN PO FEVER > 100.3'F Last administered on 05/06/21at 10:51; Start 05/06/21 at 10:15; Stop 05/07/21 at 10:14; Status DC Lacosamide (Vimpat) 50 mg BID PO Last administered on 05/08/21at 19:58; Start 05/06/21 at 21:00 Lacosamide (Vimpat) 50 mg ONCE ONCE PO Last administered on 05/06/21at 16:57; Start 05/06/21 at 16:00; Stop 05/06/21 at 16:01; Status DC Sodium Chloride 1,000 ml @ 125 mls/hr Q8H IV Last administered on 05/08/21at 16:42; Start 05/07/21 at 16:15 Active Scripts Active Keppra (Levetiracetam) 500 Mg Tablet 1 Tab PO BID 30 Days Reported Ninlaro (Ixazomib Citrate) 4 Mg Capsule 4 Mg PO QFR START 12/16 Fish Oil 1,000 mg Softgel ([place]-3/Dha/Epa/Fish Oil) 1,000 Mg Capsule 1,000 Mg PO DAILY Valacyclovir (Valacyclovir Hcl) 1,000 Mg Tablet 1,000 Mg PO DAILY Zofran (Ondansetron Hcl) 4 Mg Tablet 8 Mg PO BID PRN Calcium Carbonate 500 Mg Tablet 1,250 Mg PO DAILY Aspirin 325 Mg Tablet 325 Mg PO DAILY Xanax (Alprazolam) 0.25 Mg Tablet 0.25 Mg PO PRN BID PRN Revlimid (Lenalidomide) 15 Mg Capsule 15 Mg PO DAILY Vitals/I & O Vital Sign - Last 24 Hours 05/07/21 05/07/21 05/08/21 05/08/21 20:19 23:09 02:42 07:00 Temp 98.5 97.3 98.1 98.5 97.3 98.1 Pulse 60 52 62 Resp 16 16 16 B/P (MAP) 93/73 (80) 121/73 (89) 128/76 (93) Pulse Ox 94 94 95 O2 Delivery Room Air Room Air Room Air Room Air 05/08/21 05/08/21 05/08/21 05/08/21 08:00 11:18 15:00 19:29 Temp 97.5 98.5 97.5 98.5 Pulse 57 66 Resp 16 16 B/P (MAP) 128/85 (99) 130/81 (97) Pulse Ox 97 95 O2 Delivery Room Air Room Air Room Air Room Air Intake and Output 05/07/21 05/07/21 05/08/21 15:00 23:00 07:00 Intake Total 440 ml 740 ml 240 ml Output Total 1 ml Balance 440 ml 740 ml 239 ml Justicifation of Admission Dx: Justifications for Admission: Justification of Admission Dx: Yes MEGHA WHITLEY MD May 08, 2021 20:18
[2021-05-08 23:40] VITALS: BP 128/83
[2021-05-09 03:17] VITALS: BP 144/95
[2021-05-09 07:00] VITALS: BP 132/85
[2021-05-09 07:23] LABS: ALBUMIN 2.6 g/dL (3.4-5.0); ALBUMIN/GLOBULIN RATIO 0.6 (1.0-1.7); CALCIUM 6.2 mg/dL (8.5-10.1); CREATININE 1.9 mg/dL (0.7-1.3); GFR 38.7; POTASSIUM 4.1 mmol/L (3.5-5.1); TOTAL BILIRUBIN 0.3 mg/dL (0.2-1.0)
[2021-05-09] MEDS: IV NORMAL SALINE 1000ML BAG 1,000 ML IV SCH (08:32)
[2021-05-09] MEDS: LACOSAMIDE 50 MG TABLET PO SCH (08:32)
--- NOTE | 2021-05-09 10:10 | PDOC ---
Renal-Progress Notes Subjective Notes Notes NO NEW COMPLAINTS History of Present Illness Hx of present illness STABLE Vitals Vitals Vital Signs Date Time Temp Pulse Resp B/P (MAP) Pulse Ox O2 Delivery O2 Flow Rate FiO2 05/09/21 07:00 98.3 57 20 132/85 (101) 96 Room Air 98.3 Weight Weight [ ] I.O. Intake and Output Intake and Output 05/09/21 07:00 Intake Total 1200 ml Balance 1200 ml Intake Oral 1200 ml # Voids 3 Labs Labs Laboratory Tests Test 05/09/21 06:15 Sodium Level 145 mmol/L (136-145) Potassium Level 4.1 mmol/L (3.5-5.1) Chloride Level 112 mmol/L (98-107) Carbon Dioxide Level 25 mmol/L (21-32) Anion Gap 8 (6-14) Blood Urea Nitrogen 17 mg/dL (8-26) Creatinine 1.9 mg/dL (0.7-1.3) Estimated GFR (Cockcroft-Gault) 38.7 BUN/Creatinine Ratio 9 (6-20) Glucose Level 77 mg/dL (70-99) Calcium Level 6.2 mg/dL (8.5-10.1) Total Bilirubin 0.3 mg/dL (0.2-1.0) Aspartate Amino Transf (AST/SGOT) 29 U/L (15-37) Alanine Aminotransferase (ALT/SGPT) 42 U/L (16-63) Alkaline Phosphatase 47 U/L (46-116) Creatine Kinase 825 U/L (39-308) Total Protein 7.0 g/dL (6.4-8.2) Albumin 2.6 g/dL (3.4-5.0) Albumin/Globulin Ratio 0.6 (1.0-1.7) Review of Systems Constitutional: yes: alert, oriented Ears/Nose/Throat: Yes: no symptom reported Eyes: Yes: no symptom reported Pulmonary: Yes no symptom reported Cardiovascular: Yes no symptom reported Gastrointestional: Yes: no symptom reported Genitourinary: Yes: no symptom reported Musculoskeletal: Yes: no symptom reported Skin: Yes no symptom reported Psychiatric/Neurological: Yes: no symptom reported Endocrine: Yes: no symptom reported Physical Exam General Appearance: no apparent distress Skin: warm Respiratory: bilateral CTA Heart: S1S2 Abdomen: soft, bowel sounds present Genitourinary: bladder flat Extremities: pulses present Neurology: alert, oriented Assessment Assessment IMP LANRE-CR IMPROVED TO 1.9 ROM 2.8 RHABDOMYOLYSIS POSS CKD HX M MYELOMA-HAS BEEN ON XGEVA SEIZURE PLAN CONT HYDRATION WILL NEED TO CONT F/U AT [facility] FOR MYELOMA FOLLOW UP CPK IN AM-STILL PEAKING WILL NEED EVALUATION FOR MYELOMA KIDNEY ONCE RHABDOMYOLYSIS RESOLVES LABS IN AM LEIA BENAVIDES MD May 09, 2021 10:10
[2021-05-09 11:00] VITALS: BP 136/95
--- NOTE | 2021-05-09 11:03 | NUR ---
SW following. Discussed with RN. Pt from home with , room air, renal diet. COVID-19 negative. Pt wanting to discharge home. RN advised no SW needs at this time, anticipates discharge in the next day or so. SW will continue to follow.
--- NOTE | 2021-05-09 11:47 | EKG ---
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
[2021-05-09] MEDS ORDERED: LACO50TA PO ×2 (14:06→15:10)
[2021-05-09 15:00] VITALS: BP 152/102
--- NOTE | 2021-05-09 15:01 | PDOC ---
PROGRESS NOTES Date of Service DATE: 05/09/21 TIME: 14:51 Assessment Problems Medical Problems: (1) Renal insufficiency Status: Acute Epilepsy, breakthrough seizure, I have seen him in the hospital in December as well as in the clinic for epilepsy. We started him on levetiracetam, but he called in December saying that it was causing nightmares. Then he saw my nurse practitioner on 01/09 and 03/13 and told her each time that he was doing well on levetiracetam. He now says that that was a miscommunication. His oncologist at [facility] sent him to neurology at [facility] and he was placed on lacosamide at some point. He says that he has not been taking any anticonvulsants prior to this hospitalization. 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 My office arrange for a follow-up MRI, but he says he ended up getting the follow-up MRI at [facility] but does not know the results. Very poor historian Acute kidney injury, rhabdomyolysis, possible chronic kidney disease Multiple myeloma Plan Lacosamide 50 mg twice a day, increase to 100 mg twice a day after a week He has not decided if he is following up with me or [facility] neurology. If he follows up with me, I will check on the MRI results from [facility] Okay for discharge Subjective No complaints Objective Vital Signs Date Time Temp Pulse Resp B/P (MAP) Pulse Ox O2 Delivery O2 Flow Rate FiO2 05/09/21 11:00 97.7 61 20 136/95 (109) 96 Room Air 97.7 Intake and Output 05/09/21 07:00 Intake Total 1200 ml Balance 1200 ml Intake Oral 1200 ml # Voids 3 PHYSICAL EXAM Alert. Oriented to place and person, off on the date. Very poor historian. PERRL. EOMI. CN: no focal findings. Muscle tone: normal. Muscle strength: 5/5 DTR: 1+ Plantar reflex: Flexor Gait: Normal. Sensory exam: no abnormal findings. No cerebellar signs elicited. Review of Relevant I have reviewed the following items stan (where applicable) has been applied. Labs Laboratory Tests Test 05/08/21 06:00 05/09/21 06:15 Sodium Level 141 mmol/L (136-145) 145 mmol/L (136-145) Potassium Level 3.7 mmol/L (3.5-5.1) 4.1 mmol/L (3.5-5.1) Chloride Level 108 mmol/L (98-107) 112 mmol/L (98-107) Carbon Dioxide Level 24 mmol/L (21-32) 25 mmol/L (21-32) Anion Gap 9 (6-14) 8 (6-14) Blood Urea Nitrogen 23 mg/dL (8-26) 17 mg/dL (8-26) Creatinine 2.3 mg/dL (0.7-1.3) 1.9 mg/dL (0.7-1.3) Estimated GFR (Cockcroft-Gault) 31.0 38.7 BUN/Creatinine Ratio 10 (6-20) 9 (6-20) Glucose Level 79 mg/dL (70-99) 77 mg/dL (70-99) Calcium Level 6.9 mg/dL (8.5-10.1) 6.2 mg/dL (8.5-10.1) Magnesium Level 2.5 mg/dL (1.8-2.4) Total Bilirubin 0.3 mg/dL (0.2-1.0) 0.3 mg/dL (0.2-1.0) Aspartate Amino Transf (AST/SGOT) 29 U/L (15-37) 29 U/L (15-37) Alanine Aminotransferase (ALT/SGPT) 31 U/L (16-63) 42 U/L (16-63) Alkaline Phosphatase 46 U/L (46-116) 47 U/L (46-116) Creatine Kinase 933 U/L (39-308) 825 U/L (39-308) Total Protein 7.0 g/dL (6.4-8.2) 7.0 g/dL (6.4-8.2) Albumin 2.6 g/dL (3.4-5.0) 2.6 g/dL (3.4-5.0) Albumin/Globulin Ratio 0.6 (1.0-1.7) 0.6 (1.0-1.7) Laboratory Tests Test 05/09/21 06:15 Sodium Level 145 mmol/L (136-145) Potassium Level 4.1 mmol/L (3.5-5.1) Chloride Level 112 mmol/L (98-107) Carbon Dioxide Level 25 mmol/L (21-32) Anion Gap 8 (6-14) Blood Urea Nitrogen 17 mg/dL (8-26) Creatinine 1.9 mg/dL (0.7-1.3) Estimated GFR (Cockcroft-Gault) 38.7 BUN/Creatinine Ratio 9 (6-20) Glucose Level 77 mg/dL (70-99) Calcium Level 6.2 mg/dL (8.5-10.1) Total Bilirubin 0.3 mg/dL (0.2-1.0) Aspartate Amino Transf (AST/SGOT) 29 U/L (15-37) Alanine Aminotransferase (ALT/SGPT) 42 U/L (16-63) Alkaline Phosphatase 47 U/L (46-116) Creatine Kinase 825 U/L (39-308) Total Protein 7.0 g/dL (6.4-8.2) Albumin 2.6 g/dL (3.4-5.0) Albumin/Globulin Ratio 0.6 (1.0-1.7) Medications Current Medications Levetiracetam 1000 mg/Dextrose 110 ml @ 440 mls/hr 1X ONCE IV Last administered on 05/06/21at 08:41; Start 05/06/21 at 08:30; Stop 05/06/21 at 08:44; Status DC Ondansetron HCl (Zofran) 4 mg PRN Q8HRS PRN IVP NAUSEA/VOMITING Last administered on 05/06/21at 20:50; Start 05/06/21 at 10:15; Stop 05/07/21 at 10:14; Status DC Morphine Sulfate (Morphine Sulfate) 4 mg PRN Q2HR PRN IVP PAIN Last administered on 05/06/21at 20:50; Start 05/06/21 at 10:15; Stop 05/07/21 at 10:14; Status DC Sodium Chloride 1,000 ml @ 125 mls/hr Q8H IV Last administered on 05/07/21at 03:23; Start 05/06/21 at 10:15; Stop 05/07/21 at 10:14; Status DC Acetaminophen (Tylenol) 650 mg PRN Q4HRS PRN PO FEVER > 100.3'F Last administered on 05/06/21at 10:51; Start 05/06/21 at 10:15; Stop 05/07/21 at 10:14; Status DC Lacosamide (Vimpat) 50 mg BID PO Last administered on 05/09/21at 08:32; Start 05/06/21 at 21:00 Lacosamide (Vimpat) 50 mg ONCE ONCE PO Last administered on 05/06/21at 16:57; Start 05/06/21 at 16:00; Stop 05/06/21 at 16:01; Status DC Sodium Chloride 1,000 ml @ 125 mls/hr Q8H IV Last administered on 05/09/21at 08:32; Start 05/07/21 at 16:15 Active Scripts Active Vimpat (Lacosamide) 50 Mg Tablet 50 Mg PO BID 90 Days Keppra (Levetiracetam) 500 Mg Tablet 1 Tab PO BID 30 Days Reported Ninlaro (Ixazomib Citrate) 4 Mg Capsule 4 Mg PO QFR START 12/16 Fish Oil 1,000 mg Softgel ([place]-3/Dha/Epa/Fish Oil) 1,000 Mg Capsule 1,000 Mg PO DAILY Valacyclovir (Valacyclovir Hcl) 1,000 Mg Tablet 1,000 Mg PO DAILY Zofran (Ondansetron Hcl) 4 Mg Tablet 8 Mg PO BID PRN Calcium Carbonate 500 Mg Tablet 1,250 Mg PO DAILY Aspirin 325 Mg Tablet 325 Mg PO DAILY Xanax (Alprazolam) 0.25 Mg Tablet 0.25 Mg PO PRN BID PRN Revlimid (Lenalidomide) 15 Mg Capsule 15 Mg PO DAILY Vitals/I & O Vital Sign - Last 24 Hours 05/08/21 05/08/21 05/08/21 05/08/21 15:00 19:00 19:29 23:40 Temp 98.5 98.4 98.1 98.5 98.4 98.1 Pulse 66 82 67 Resp 16 18 18 B/P (MAP) 130/81 (97) 129/81 (97) 128/83 (98) Pulse Ox 95 98 97 O2 Delivery Room Air Room Air Room Air Room Air 05/09/21 05/09/21 05/09/21 05/09/21 03:17 07:00 08:00 11:00 Temp 98.6 98.3 97.7 98.6 98.3 97.7 Pulse 63 57 61 Resp 18 20 20 B/P (MAP) 144/95 (111) 132/85 (101) 136/95 (109) Pulse Ox 97 96 96 O2 Delivery Room Air Room Air Room Air Room Air Intake and Output 05/08/21 05/08/21 05/09/21 15:00 23:00 07:00 Intake Total 480 ml 720 ml Balance 480 ml [address] HEAD/BRAIN WO CLINICAL HISTORY: Seizure, h/o left ventricular mass TECHNIQUE: Serial axial images without IV contrast were obtained from the vertex to the foramen magnum. CT Dose Reduction Employed: One or more of the following individualized dose reduction techniques were utilized for this examination: 1. Automated exposure control 2. Adjustment of the mA and/or kV according to patient size 3. Use of iterative reconstruction technique. COMPARISON: MRI brain 12/09/2020, CT head 12/06/2020 FINDINGS: Acute Change: No evidence of an acute infarct or other acute parenchymal process. Hemorrhage: No evidence of acute intracranial hemorrhage. Mass Lesion/Mass Effect: Prominent asymmetry in the region of the left thalamus and basal ganglia at site of overlying small subependymal nodule which is best visualized on comparison MRI. The degree of asymmetry is similar to slightly more pronounced compared to prior study which may be in part related to patient positioning and imaging technique. No new or significant midline shift. Parenchyma: No significant volume loss. Parenchyma otherwise within normal limits for age. Ventricles: Poorly visualized small subependymal nodule in the region of the left caudothalamic groove, better appreciated on comparison MRI. Asymmetric prominence of the right lateral ventricle, nonspecific but similar to prior study. Paranasal Sinuses and Skull Base: Increased multifocal sinusitis with changes of chronic left sphenoid sinusitis. Visualized skull base and soft tissues unremarkable. IMPRESSION: No evidence of acute intracranial abnormality. Similar asymmetry in the region of the left thalamus and basal ganglia with overlying small subependymal nodule as described. If MRI brain with intravenous contrast has not been obtained since the comparison MRI, this is again recommended for further evaluation and could be obtained on a nonemergent/outpatient basis. Increased multifocal sinusitis as described. Justicifation of Admission Dx: Justifications for Admission: Justification of Admission Dx: Yes EMILE SANTOS MD May 09, 2021 15:01
[2021-05-09] MEDS ORDERED: LACO100T PO (15:10)
--- NOTE | 2021-05-09 15:13 | PDOC3 ---
Discharge Summary Visit Information Date of Admission: May 06, 2021 Date of Discharge: May 09, 2021 Admitting Diagnosis: Seizure Final Diagnosis Problems Medical Problems: (1) Renal insufficiency Status: Acute Brief Hospital Course Allergies Allergies Coded Allergies Type Severity Reaction Last Updated Verified No Known Drug Allergies 12/06/20 No Vital Signs Vital Signs Date Time Temp Pulse Resp B/P (MAP) Pulse Ox O2 Delivery O2 Flow Rate FiO2 05/09/21 11:00 97.7 61 20 136/95 (109) 96 Room Air 97.7 Lab Results Laboratory Tests Test 05/08/21 06:00 05/09/21 06:15 Sodium Level 141 mmol/L (136-145) 145 mmol/L (136-145) Potassium Level 3.7 mmol/L (3.5-5.1) 4.1 mmol/L (3.5-5.1) Chloride Level 108 mmol/L (98-107) 112 mmol/L (98-107) Carbon Dioxide Level 24 mmol/L (21-32) 25 mmol/L (21-32) Anion Gap 9 (6-14) 8 (6-14) Blood Urea Nitrogen 23 mg/dL (8-26) 17 mg/dL (8-26) Creatinine 2.3 mg/dL (0.7-1.3) 1.9 mg/dL (0.7-1.3) Estimated GFR (Cockcroft-Gault) 31.0 38.7 BUN/Creatinine Ratio 10 (6-20) 9 (6-20) Glucose Level 79 mg/dL (70-99) 77 mg/dL (70-99) Calcium Level 6.9 mg/dL (8.5-10.1) 6.2 mg/dL (8.5-10.1) Magnesium Level 2.5 mg/dL (1.8-2.4) Total Bilirubin 0.3 mg/dL (0.2-1.0) 0.3 mg/dL (0.2-1.0) Aspartate Amino Transf (AST/SGOT) 29 U/L (15-37) 29 U/L (15-37) Alanine Aminotransferase (ALT/SGPT) 31 U/L (16-63) 42 U/L (16-63) Alkaline Phosphatase 46 U/L (46-116) 47 U/L (46-116) Creatine Kinase 933 U/L (39-308) 825 U/L (39-308) Total Protein 7.0 g/dL (6.4-8.2) 7.0 g/dL (6.4-8.2) Albumin 2.6 g/dL (3.4-5.0) 2.6 g/dL (3.4-5.0) Albumin/Globulin Ratio 0.6 (1.0-1.7) 0.6 (1.0-1.7) Laboratory Tests Test 05/09/21 06:15 Sodium Level 145 mmol/L (136-145) Potassium Level 4.1 mmol/L (3.5-5.1) Chloride Level 112 mmol/L (98-107) Carbon Dioxide Level 25 mmol/L (21-32) Anion Gap 8 (6-14) Blood Urea Nitrogen 17 mg/dL (8-26) Creatinine 1.9 mg/dL (0.7-1.3) Estimated GFR (Cockcroft-Gault) 38.7 BUN/Creatinine Ratio 9 (6-20) Glucose Level 77 mg/dL (70-99) Calcium Level 6.2 mg/dL (8.5-10.1) Total Bilirubin 0.3 mg/dL (0.2-1.0) Aspartate Amino Transf (AST/SGOT) 29 U/L (15-37) Alanine Aminotransferase (ALT/SGPT) 42 U/L (16-63) Alkaline Phosphatase 47 U/L (46-116) Creatine Kinase 825 U/L (39-308) Total Protein 7.0 g/dL (6.4-8.2) Albumin 2.6 g/dL (3.4-5.0) Albumin/Globulin Ratio 0.6 (1.0-1.7) Brief Hospital Course Assessment/Plan seizure, acute with known seizure disorder, he has seen a Neurologist in the [facility] system 2 weeks ago asymmetry in the region of the left thalamus and basal ganglia with overlying small subependymal nodule as described. 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 Differential diagnosis includes heterotopic odonnell matter, subependymal giant cell astrocytoma, or subependymoma post-ictal and confused acute renal failure, myoglobin up, low grade rhabdo, will hydrate aggresively probable CKD 3 multiple myeloma in remission brain mass, NOS not continue with Keppra provoked adverse effects. Vimpat 50 mg twice per day. History of Present Illness History of Present Illness History of Present Illness History of Present Illness Mr. Vasquez is a 45 year old male admit for seizure, arrived to ER by EMS. He feels like he had a seizure, is sore, but was not witnessed, his heard commotion, and found him with a bite to his own tongue and markedly lethargic he was hard asleep when I came to see him, and still a little confused. No bowel or bladder incontinence. prior known seizure disorder, he cannot remember the name of the Neurologist he saw recently in the [employer] system,. some known brain mass, has been treated for mult myeloma, in remission, he cannot remember now if he has had a allo transplant. noted that he treatment of multiple myeloma caused some renal injury 05/08/21 Patient seen and examined at bedside. Doing well no acute complaints. Creatinine a improving, approaching baseline. Like to monitor for more night to check labs again in the morning. Hopeful for discharge tomorrow. 05/09 Patient evaluated at bedside. No complaints, eager to d/c. Informed him of elevated CK and need to recheck this level, he informed me he would be able to get labs at his PCP before the end of the week. Explained to him Vimpat dosing and titration up Discharge Information Condition at Discharge: Improved Disposition/Orders: D/C to Home Scheduled Aspirin (Aspirin) 325 Mg Tablet, 325 MG PO DAILY for , (Reported) Entered as Reported by: Praveen Lu on 12/08/201725 Last Action: Reviewed on 05/06/211442 by HARDY JACKSON Calcium Carbonate (Calcium Carbonate) 500 Mg Tablet, 1,250 MG PO DAILY for , (Reported) Entered as Reported by: Praveen Lu on 12/08/201725 Last Action: Reviewed on 05/06/211442 by HARDY JACKSON Ixazomib Citrate (Ninlaro) 4 Mg Capsule, 4 MG PO QFR for multiple myeloma, (Reported) START 12/16 Entered as Reported by: Arminda Roca on 12/08/202039 Last Action: Reviewed on 05/06/211442 by HARDY JACKSON Lacosamide (Vimpat) 50 Mg Tablet, 50 MG PO BID for seizure for 7 Days, #14 Prescribed by: TI SWAN MD on 05/09/21 1510 Lacosamide (Vimpat) 100 Mg Tablet, 100 MG PO BID for seizure for 90 Days, #180 Start this dosage on 05/17 Prescribed by: TI SWAN MD on 05/09/21 1511 Lenalidomide (Revlimid) 15 Mg Capsule, 15 MG PO DAILY for multiple myeloma, (Reported) Entered as Reported by: ARIANE SANTACRUZ on 12/08/20 0734 Last Action: Reviewed on 05/06/211442 by HARDY JACKSON [place]-3/Dha/Epa/Fish Oil (Fish Oil 1,000 mg Softgel) 1,000 Mg Capsule, 1,000 MG PO DAILY for SUPPLEMENT, (Reported) Entered as Reported by: Arminda Roca on 12/08/202032 Last Action: Reviewed on 05/06/211442 by HARDY JACKSON Valacyclovir Hcl (Valacyclovir) 1,000 Mg Tablet, 1,000 MG PO DAILY for , (Repo rted) Entered as Reported by: Praveen Lu on 12/08/201725 Last Action: Reviewed on 05/06/211442 by HARDY JACKSON Scheduled PRN Alprazolam (Xanax) 0.25 Mg Tablet, 0.25 MG PO PRN BID PRN for ANXIETY / AGITATIO N, Ref 0 (Reported) Entered as Reported by: Praveen Lu on 12/08/201725 Last Action: Reviewed on 05/06/211442 by HARDY JACKSON Ondansetron Hcl (Zofran) 4 Mg Tablet, 8 MG PO BID PRN for NAUSEA/VOMITING, (Reported) Entered as Reported by: Praveen Lu on 12/08/201725 Last Action: Reviewed on 05/06/211442 by HARDY JACKSON Discontinued Medications Levetiracetam (Keppra) 500 Mg Tablet, 1 TAB PO BID for seizure for 30 Days, #60 Ref 0 Prescribed by: ARIADNE TABARES on 12/10/20 1008 Justicifation of Admission Dx: Justifications for Admission: Justification of Admission Dx: Yes TI SWAN MD May 09, 2021 15:13
--- NOTE | 2021-05-09 16:56 | NUR ---
Patient discharge home with self care today via ambulation accompanied by this RN. Patient is stable, IV removed, and discharge paperwork given to patient. Patient verbalized understanding of followup and discharge instruction.
== END 2021-05-09 16:59 | disposition home or self-care (01) | DRG 100 ==
LOC: ER 05:40 → ED HOLD 09:54 → OBSVTOIN 09:55 → 5 NORTH 10:00
PROVIDERS: ADMIT Internal Medicine; ATTEND Internal Medicine
DX: G40.909 Epilepsy, unspecified, not intractable, without status epilepticus (principal); N17.0 Acute kidney failure with tubular necrosis; M62.82 Rhabdomyolysis; C90.01 Multiple myeloma in remission; F41.9 Anxiety disorder, unspecified; G93.9 Disorder of brain, unspecified; N18.30 Chronic kidney disease, stage 3 unspecified; Z79.82 Long term (current) use of aspirin; Z79.899 Other long term (current) drug therapy; Z92.21 Personal history of antineoplastic chemotherapy
CPT/HCPCS: 36415; 70450; 80053; 80307; 81001; 82550; 83605; 83735; 83874; 84100; 84484; 85007; 85025; 87426; 93005; 96365; G0379; G0480; J1953; J2270; J2405; J7030; J7060; U0003; U0005; 99285-25; G0378